=== PATIENT | female | born 1960 | race Hispanic/Latino ===

== ENCOUNTER 2018-04-13 01:00 | Emergency (ER) | payer OTHER ==
[2018-04-13] MEDS ORDERED: KETOROLAC TROMETHAMINE 60 MG/2 ML VIAL ONE (01:08)
[2018-04-13 01:59] LABS: APPEARANCE,URINE Cloudy (CLEAR); BILIRUBIN,URINE Negative (NEGATIVE); COLOR,URINE Yellow (YELLOW); GLUCOSE, URINE (UA) >=1000 mg/dL (NEGATIVE); KETONES,URINE Negative (NEGATIVE); LEUKOCYTE ESTERASE ,URINE Moderate (NEGATIVE); NITRATE,URINE Positive (NEGATIVE); OCCULT BLOOD,URINE Large (NEGATIVE); PH,URINE 5.5 (5.0-8.0); PROTEIN,URINE POS 2+ (NEGATIVE)
[2018-04-13 02:05] LABS: BACTERIA,URINE Many /HPF (None Seen); MUCUS,URINE Few LPF (None Seen); SQUAMOUS EPITHELIAL CELL,UR Few /HPF (0-2); WBC,URINE 26-50 /HPF (0-1)
[2018-04-13 02:06] LABS: AMPHET/METH SCREEN,URINE NEGATIVE (NEGATIVE); BARBITURATE SCREEN, URINE NEGATIVE (NEGATIVE); BENZODIAZEPINES SCREEN,URINE NEGATIVE (NEGATIVE); CANNABINOID SCREEN,URINE NEGATIVE (NEGATIVE); COCAINE SCREEN,URINE POSITIVE (NEGATIVE); OPIATE SCREEN,URINE NEGATIVE (NEGATIVE); PHENCYCLIDINE SCREEN,URINE NEGATIVE (NEGATIVE)
[2018-04-13] MEDS ORDERED: LIDOCAINE HCL MPF 1% 5ML VIAL ONE (02:31)
[2018-04-13] MEDS ORDERED: CEFTRIAXONE SODIUM 1 GM ONE (02:31)
== END 2018-04-13 02:42 | disposition home or self-care (01) ==
LOC: EDH 01:00
DX: N12 Tubulo-interstitial nephritis, not specified as acute or chronic (principal); F14.10 Cocaine abuse, uncomplicated; E11.9 Type 2 diabetes mellitus without complications; Z87.442 Personal history of urinary calculi; Z88.1 Allergy status to other antibiotic agents; Z72.0 Tobacco use
CPT/HCPCS: 80305; 81001; 96372 ×2; 99284; J0696; J1885; J3490

== ENCOUNTER 2021-01-20 19:50 | Emergency (ER) | payer OTHER ==
[~2021-01-20] VITALS: Ht 157.5 cm; Wt 77.1 kg
[2021-01-20] MEDS ORDERED: NACL 0.9% 1000ML 1,000 ML IV ONE (20:00)
[2021-01-20 20:13] LABS: BASOPHILS % (AUTO) 0.5 % (0.0-5.0); HEMATOCRIT 34.8 % (36-48); MEAN CORPUSCULAR HEMOGLOBIN 28.7 pg (27.0-33.0); MEAN CORPUSCULAR HGB CONC 33.6 g/dL (32.0-36.0); MEAN CORPUSCULAR VOLUME 85.5 fL (79-99); MONOCYTES % (AUTO) 4.4 % (3.0-13.0); NEUTROPHILS % (AUTO) 78.9 % (40.0-77.0); PLATELET COUNT (AUTO) 264 K/uL (130-400); RED BLOOD CELL COUNT(AUTO) 4.07 MIL/uL (4.00-5.50); RED CELL DISTRIBUTION WIDTH 13.5 % (11.0-15.5); WHITE BLOOD COUNT (AUTO) 4.1 K/uL (4.8-10.8)
[2021-01-20] MEDS ORDERED: ACETAMINOPHEN 500 MG TABLET PO ONE (20:15)
[2021-01-20 20:24] LABS: POTASSIUM 3.1 mmol/L (3.5-5.1)
[2021-01-20 20:28] LABS: ALBUMIN 3.1 g/dL (3.5-5.0); BILIRUBIN,TOTAL 0.4 mg/dL (0.2-1.0); TOTAL PROTEIN, SERUM 7.4 g/dL (6.0-8.3)
[2021-01-20] MEDS ORDERED: ACETAMINOPHEN 500 MG TABLET ONE (21:28)
[2021-01-20] MEDS ORDERED: OSELTAMIVIR PHOSPHATE 75 MG CAP PO SCH (21:45)
[2021-01-20 21:51] LABS: APPEARANCE,URINE Clear (CLEAR); BILIRUBIN,URINE Negative (NEGATIVE); COLOR,URINE Dark Yellow (YELLOW); GLUCOSE, URINE (UA) 250 mg/dL (NEGATIVE); KETONES,URINE 15 mg/dL (NEGATIVE); LEUKOCYTE ESTERASE ,URINE Negative (NEGATIVE); NITRATE,URINE Negative (NEGATIVE); OCCULT BLOOD,URINE Trace (NEGATIVE); PH,URINE 6.5 (5.0-8.0); PROTEIN,URINE POS 2+ mg/dL (NEGATIVE)
[2021-01-20 21:56] LABS: BACTERIA,URINE Rare /HPF (None Seen); RBC,URINE None Seen /HPF (0-1); SQUAMOUS EPITHELIAL CELL,UR Rare /HPF (0-2); WBC,URINE None Seen /HPF (0-1)
[2021-01-20] MEDS ORDERED: OSEL75 PO (22:20)
[2021-01-20] MEDS ORDERED: ACET-2247 PO (22:20)
[2021-01-20 23:00] VITALS: BP 95/54
== END 2021-01-20 23:51 | disposition home or self-care (01) ==
LOC: EDH 19:50
DX: J10.1 Influenza due to other identified influenza virus with other respiratory manifestations (principal); E86.0 Dehydration; I95.1 Orthostatic hypotension; E11.9 Type 2 diabetes mellitus without complications; Z59.0 Homelessness; Z88.1 Allergy status to other antibiotic agents; Z98.51 Tubal ligation status
CPT/HCPCS: 36415; 71045; 80053; 81001; 83690; 84484; 85025; 87804 ×2; 87880; 93005; 96360; 99285; J7030

== ENCOUNTER 2021-08-07 20:54 | Inpatient (IN) | payer OTHER ==
[~2021-08-07] VITALS: Ht 157.5 cm; Wt 74.3 kg
[~2021-08-07 20:54] MED LIST: METF-444 PO; OSEL75 PO
[2021-08-07 21:18] LABS: BASOPHILS % (AUTO) 0.1 % (0.0-5.0); EOSINOPHILS % (AUTO) 0.2 % (0.0-8.0); HEMATOCRIT 41.4 % (36-48); LYMPHOCYTES % (AUTO) 3.9 % (21.0-51.0); MEAN CORPUSCULAR HEMOGLOBIN 28.8 pg (27.0-33.0); MEAN CORPUSCULAR HGB CONC 32.6 g/dL (32.0-36.0); MEAN CORPUSCULAR VOLUME 88.5 fL (79-99); MONOCYTES % (AUTO) 3.6 % (3.0-13.0); NEUTROPHILS % (AUTO) 91.7 % (40.0-77.0); PLATELET COUNT (AUTO) 344 K/uL (130-400); RED BLOOD CELL COUNT(AUTO) 4.68 MIL/uL (4.00-5.50); RED CELL DISTRIBUTION WIDTH 13.3 % (11.0-15.5); WHITE BLOOD COUNT (AUTO) 17.3 K/uL (4.8-10.8)
[2021-08-07 21:26] LABS: CREATININE 1.2 mg/dL (0.5-1.5); POTASSIUM 3.9 mmol/L (3.5-5.1)
[2021-08-07 21:30] LABS: ALBUMIN 3.8 g/dL (3.5-5.0); BILIRUBIN,TOTAL 0.4 mg/dL (0.2-1.0)
[2021-08-07] MEDS ORDERED: CEFTRIAXONE 1G VIAL IVP ONE (21:30)
[2021-08-07] MEDS ORDERED: MORPHINE 4 MG SYG IV ONE (21:30)
[2021-08-07] MEDS ORDERED: ONDANSETRON 4MG INJ IVP ONE (21:30)
[2021-08-07] MEDS ORDERED: 0.9% NACL 500ML IV.SOLN 500 ML IV ONE (21:30)
[2021-08-07] MEDS ORDERED: KETOROLAC 30MG VIAL (30MG/ML) IM ONE (21:30)
[2021-08-07 21:54] LABS: APPEARANCE,URINE Cloudy (CLEAR); BILIRUBIN,URINE Negative (NEGATIVE); COLOR,URINE Yellow (YELLOW); GLUCOSE, URINE (UA) 500 mg/dL (NEGATIVE); KETONES,URINE Trace mg/dL (NEGATIVE); LEUKOCYTE ESTERASE ,URINE Moderate (NEGATIVE); NITRATE,URINE Positive (NEGATIVE); OCCULT BLOOD,URINE Small (NEGATIVE); PH,URINE 5.5 (5.0-8.0); PROTEIN,URINE POS 2+ mg/dL (NEGATIVE)
[2021-08-07 22:44] LABS: BACTERIA,URINE Few /HPF (None Seen); CALCIUM OXALATE CRYSTALS,UR Many /LPF (None Seen)
[2021-08-07] MEDS ORDERED: CEFTRIAXONE 1G VIAL IV SCH (23:00)
[2021-08-07] MEDS ORDERED: ACETAMINOPHEN 325 MG TAB PO PRN (23:00)
[2021-08-07] MEDS: LACTATED RINGERS 1000ML 1,000 ML IV SCH (23:41)
[2021-08-08] MEDS ORDERED: MEROPENEM 500 MG VIAL IVP SCH (01:30)
[2021-08-08] MEDS: KETOROLAC 30MG VIAL (30MG/ML) IM PRN ×3 (03:26→23:30)
[2021-08-08] MEDS: MEROPENEM 500 MG VIAL IVP SCH ×3 (04:58→21:01)
[2021-08-08 05:43] LABS: BASOPHILS % (AUTO) 0.2 % (0.0-5.0); EOSINOPHILS % (AUTO) 0.3 % (0.0-8.0); HEMATOCRIT 41.6 % (36-48); LYMPHOCYTES % (AUTO) 3.8 % (21.0-51.0); MEAN CORPUSCULAR HEMOGLOBIN 28.8 pg (27.0-33.0); MEAN CORPUSCULAR HGB CONC 32.7 g/dL (32.0-36.0); MEAN CORPUSCULAR VOLUME 87.9 fL (79-99); NEUTROPHILS % (AUTO) 93.8 % (40.0-77.0); PLATELET COUNT (AUTO) 318 K/uL (130-400); RED BLOOD CELL COUNT(AUTO) 4.73 MIL/uL (4.00-5.50); RED CELL DISTRIBUTION WIDTH 13.3 % (11.0-15.5); WHITE BLOOD COUNT (AUTO) 17.2 K/uL (4.8-10.8)
[2021-08-08 05:52] LABS: HEMOGLOBIN A1C 8.2 % (4.0-6.0)
[2021-08-08 05:55] LABS: CREATININE 1.8 mg/dL (0.5-1.5); MAGNESIUM 1.3 mg/dL (1.80-2.40); PHOSPHORUS 2.9 mg/dL (2.5-4.9); POTASSIUM 4.5 mmol/L (3.5-5.1)
[2021-08-08] MEDS: INSULIN HUMULIN R 100 UNIT/ML 3ML SQ SCH ×4 (06:44→21:29)
[2021-08-08] MEDS: FAMOTIDINE 20MG TAB PO SCH ×2 (09:36→21:01)
[2021-08-08] MEDS: HEPARIN 5,000 UNIT VIAL SQ SCH ×2 (09:37→14:47)
[2021-08-08] MEDS: LACTATED RINGERS 1000ML 1,000 ML IV SCH ×2 (12:42→21:01)
[2021-08-08 16:00] VITALS: BP 122/71
[2021-08-08] MEDS: MAGNESIUM 2GM PREMIX 50ML 50 ML IV PRN (18:54)
[2021-08-08 18:58] LABS: INR 1.15 (0.85-1.15); PROTHROMBIN TIME 12.4 SEC (9.6-11.6)
[2021-08-08 19:00] LABS: PARTIAL THROMBOPLASTIN TIME 38.2 SEC (26.3-35.5)
[2021-08-08 20:00] VITALS: BP 105/52
[2021-08-08] MEDS: GUAIFENESIN-DM 200/20 MG 10 ML PO PRN (23:29)
[2021-08-09] VITALS: BP 128/58
[2021-08-09 04:00] VITALS: BP 117/69
[2021-08-09] MEDS: MEROPENEM 500 MG VIAL IVP SCH (05:00)
[2021-08-09] MEDS: INSULIN HUMULIN R 100 UNIT/ML 3ML SQ SCH ×4 (06:24→21:47)
[2021-08-09] MEDS: KETOROLAC 30MG VIAL (30MG/ML) IM PRN ×3 (06:26→23:42)
[2021-08-09] MEDS: FAMOTIDINE 20MG TAB PO SCH ×2 (07:54→20:30)
[2021-08-09 08:00] VITALS: BP 118/52
[2021-08-09 12:00] VITALS: BP 100/45
[2021-08-09] MEDS: MEROPENEM 1 GM VIAL IVP SCH ×2 (14:00→20:30)
[2021-08-09] MEDS ORDERED: PROPOFOL 10 MG/ML 20ML VIAL IV ONE (15:56)
[2021-08-09] MEDS ORDERED: GLYCOPYRROLATE 1 MG/5 ML SYRINGE ONE (15:56)
[2021-08-09] MEDS ORDERED: ROCURONIUM 10MG/1ML SYR 10 MG/ML ML ONE (15:56)
[2021-08-09] MEDS ORDERED: LIDOCAINE PF 100MG/5ML (2%) SYRINGE 5ML ONE (15:56)
[2021-08-09] MEDS ORDERED: NEOSTIGMINE 5MG/5ML SYR IV ONE (15:56)
[2021-08-09] MEDS ORDERED: FENTANYL CITRATE PF 50 MCG/1 ML 2ML VIAL ONE (15:56)
[2021-08-09] MEDS ORDERED: MIDAZOLAM HCL 1 MG/ML 2ML VIAL ONE (15:56)
[2021-08-09] MEDS ORDERED: SUCCINYLCHOLINE CHLORIDE 20 MG/ML 10 ML VIAL ONE (15:56)
[2021-08-09] MEDS ORDERED: KETAMINE 50MG/ML SYRINGE 50 MG/ML DISP.SYRIN IV ONE (15:57)
[2021-08-09 16:00] VITALS: BP 128/59
[2021-08-09 20:00] VITALS: BP 105/66
[2021-08-09] MEDS: LACTATED RINGERS 1000ML 1,000 ML IV SCH (20:31)
[2021-08-09] MEDS: GUAIFENESIN-DM 200/20 MG 10 ML PO PRN (23:42)
[2021-08-10] VITALS: BP 102/55
[2021-08-10 04:00] VITALS: BP 115/60
[2021-08-10 04:15] LABS: BASOPHILS % (AUTO) 0.1 % (0.0-5.0); EOSINOPHILS % (AUTO) 1.9 % (0.0-8.0); HEMATOCRIT 31.3 % (36-48); LYMPHOCYTES % (AUTO) 10.6 % (21.0-51.0); MEAN CORPUSCULAR HEMOGLOBIN 28.8 pg (27.0-33.0); MEAN CORPUSCULAR HGB CONC 32.6 g/dL (32.0-36.0); MEAN CORPUSCULAR VOLUME 88.4 fL (79-99); MONOCYTES % (AUTO) 4.2 % (3.0-13.0); NEUTROPHILS % (AUTO) 81.9 % (40.0-77.0); PLATELET COUNT (AUTO) 226 K/uL (130-400); RED BLOOD CELL COUNT(AUTO) 3.54 MIL/uL (4.00-5.50); RED CELL DISTRIBUTION WIDTH 13.1 % (11.0-15.5); WHITE BLOOD COUNT (AUTO) 13.5 K/uL (4.8-10.8)
[2021-08-10 04:30] LABS: CREATININE 1.3 mg/dL (0.5-1.5); POTASSIUM 3.8 mmol/L (3.5-5.1)
[2021-08-10 05:19] LABS: CRP QUANTITATIVE 233.7 mg/L (0.00-9.0)
[2021-08-10 05:41] LABS: ERYTHROCYTE SEDIMENTATION RATE 99 MM/HR (0-30)
[2021-08-10] MEDS: INSULIN HUMULIN R 100 UNIT/ML 3ML SQ SCH ×4 (05:50→20:55)
[2021-08-10] MEDS: LACTATED RINGERS 1000ML 1,000 ML IV SCH ×3 (05:51→21:58)
[2021-08-10] MEDS: MEROPENEM 1 GM VIAL IVP SCH ×3 (05:55→20:54)
[2021-08-10 08:00] VITALS: BP 111/69
[2021-08-10] MEDS: KETOROLAC 30MG VIAL (30MG/ML) IM PRN ×2 (08:37→18:26)
[2021-08-10] MEDS: FAMOTIDINE 20MG TAB PO SCH ×2 (09:03→20:52)
[2021-08-10 11:49] VITALS: BP 112/67
[2021-08-10] MEDS ORDERED: LIDOCAINE HCL 1% MDV 50ML VIAL ONE (14:08)
[2021-08-10] MEDS ORDERED: IODIXANOL 320 MG/ML 100 ML VIAL ONE (14:11)
[2021-08-10] MEDS ORDERED: MIDAZOLAM HCL 1 MG/ML 2ML VIAL ONE (14:42)
[2021-08-10] MEDS ORDERED: FENTANYL CITRATE PF 50 MCG/1 ML 2ML VIAL ONE (14:42)
[2021-08-10 16:00] VITALS: BP 133/88
[2021-08-10] MEDS: GUAIFENESIN-DM 200/20 MG 10 ML PO PRN (19:30)
[2021-08-10 20:09] VITALS: BP 131/63
[2021-08-11] VITALS (7 sets, daily range): BP systolic 107–130; BP diastolic 60–75
[2021-08-11] MEDS: KETOROLAC 30MG VIAL (30MG/ML) IM PRN ×2 (02:32→09:07)
[2021-08-11] MEDS: MEROPENEM 1 GM VIAL IVP SCH ×3 (05:20→21:02)
[2021-08-11] MEDS: GUAIFENESIN-DM 200/20 MG 10 ML PO PRN ×2 (05:51→14:56)
[2021-08-11] MEDS: INSULIN HUMULIN R 100 UNIT/ML 3ML SQ SCH ×4 (05:52→20:57)
[2021-08-11] MEDS: FAMOTIDINE 20MG TAB PO SCH ×2 (09:08→20:47)
[2021-08-12] MEDS: KETOROLAC 30MG VIAL (30MG/ML) IM PRN (01:34)
[2021-08-12 04:04] VITALS: BP 113/62
[2021-08-12] MEDS: MEROPENEM 1 GM VIAL IVP SCH ×3 (06:08→23:02)
[2021-08-12] MEDS: INSULIN HUMULIN R 100 UNIT/ML 3ML SQ SCH ×4 (07:30→20:08)
[2021-08-12 07:56] VITALS: BP 142/70
[2021-08-12] MEDS: FAMOTIDINE 20MG TAB PO SCH ×2 (09:38→19:58)
[2021-08-12] MEDS: LACTATED RINGERS 1000ML 1,000 ML IV SCH ×2 (09:40→23:00)
[2021-08-12] MEDS ORDERED: KETOROLAC 30MG VIAL (30MG/ML) IVP PRN (10:00)
[2021-08-12 10:58] VITALS: BP 122/74
[2021-08-12] MEDS: GUAIFENESIN-DM 200/20 MG 10 ML PO PRN ×2 (14:30→23:02)
[2021-08-12 16:28] VITALS: BP 120/76
[2021-08-12 19:55] VITALS: BP 143/78
[2021-08-12 23:19] VITALS: BP 126/69
[2021-08-13 04:05] VITALS: BP 152/62
[2021-08-13 04:19] LABS: BASOPHILS % (AUTO) 0.7 % (0.0-5.0); EOSINOPHILS % (AUTO) 3.8 % (0.0-8.0); HEMATOCRIT 31.6 % (36-48); LYMPHOCYTES % (AUTO) 31.9 % (21.0-51.0); MEAN CORPUSCULAR HGB CONC 32.9 g/dL (32.0-36.0); MONOCYTES % (AUTO) 9.4 % (3.0-13.0); NEUTROPHILS % (AUTO) 50.7 % (40.0-77.0); PLATELET COUNT (AUTO) 307 K/uL (130-400); RED BLOOD CELL COUNT(AUTO) 3.59 MIL/uL (4.00-5.50); RED CELL DISTRIBUTION WIDTH 12.8 % (11.0-15.5); WHITE BLOOD COUNT (AUTO) 7.7 K/uL (4.8-10.8)
[2021-08-13 04:33] LABS: CREATININE 1.1 mg/dL (0.5-1.5); POTASSIUM 3.9 mmol/L (3.5-5.1)
[2021-08-13] MEDS ORDERED: KETOROLAC 30MG VIAL (30MG/ML) ONE (05:31)
[2021-08-13] MEDS: MEROPENEM 1 GM VIAL IVP SCH ×3 (05:39→21:37)
[2021-08-13] MEDS ORDERED: KETOROLAC 30MG VIAL (30MG/ML) IV ONE (06:00)
[2021-08-13] MEDS: INSULIN HUMULIN R 100 UNIT/ML 3ML SQ SCH ×4 (06:36→21:00)
[2021-08-13 08:05] VITALS: BP 145/72
[2021-08-13] MEDS: FAMOTIDINE 20MG TAB PO SCH ×2 (08:46→21:37)
[2021-08-13 11:44] VITALS: BP 117/66
[2021-08-13] MEDS: LACTATED RINGERS 1000ML 1,000 ML IV SCH (12:20)
[2021-08-13] MEDS ORDERED: IBUPROFEN 600 MG TABLET PO PRN (13:30)
[2021-08-13] MEDS: MAGNESIUM 2GM PREMIX 50ML 50 ML IV PRN (16:50)
[2021-08-13 17:01] VITALS: BP 123/63
[2021-08-13 20:00] VITALS: BP 138/85
[2021-08-14] VITALS: BP 120/63
[2021-08-14] MEDS: GUAIFENESIN-DM 200/20 MG 10 ML PO PRN ×3 (01:30→22:58)
[2021-08-14] MEDS: LACTATED RINGERS 1000ML 1,000 ML IV SCH (01:40)
[2021-08-14 04:00] VITALS: BP 144/80
[2021-08-14] MEDS: MEROPENEM 1 GM VIAL IVP SCH ×3 (05:38→21:20)
[2021-08-14] MEDS: ACETAMINOPHEN 325 MG TAB PO PRN ×2 (05:39→16:26)
[2021-08-14] MEDS: INSULIN HUMULIN R 100 UNIT/ML 3ML SQ SCH ×4 (05:50→21:17)
[2021-08-14 07:51] VITALS: BP 131/61
[2021-08-14] MEDS: FAMOTIDINE 20MG TAB PO SCH ×2 (09:57→21:20)
[2021-08-14 10:51] VITALS: BP 98/53
[2021-08-14 16:03] VITALS: BP 138/72
[2021-08-14 19:30] VITALS: BP 120/68
[2021-08-15] VITALS (7 sets, daily range): BP systolic 99–120; BP diastolic 57–76
[2021-08-15] MEDS: ACETAMINOPHEN 325 MG TAB PO PRN (02:51)
[2021-08-15] MEDS: MEROPENEM 1 GM VIAL IVP SCH ×3 (04:58→21:46)
[2021-08-15] MEDS: INSULIN HUMULIN R 100 UNIT/ML 3ML SQ SCH ×2 (06:33→21:46)
[2021-08-15] MEDS: FAMOTIDINE 20MG TAB PO SCH ×2 (08:58→21:39)
[2021-08-15] MEDS: GUAIFENESIN-DM 200/20 MG 10 ML PO PRN (18:21)
[2021-08-16 03:11] VITALS: BP 95/54
[2021-08-16] MEDS: GUAIFENESIN-DM 200/20 MG 10 ML PO PRN ×2 (03:53→19:09)
[2021-08-16] MEDS: MEROPENEM 1 GM VIAL IVP SCH ×3 (05:13→21:03)
[2021-08-16] MEDS: INSULIN HUMULIN R 100 UNIT/ML 3ML SQ SCH ×4 (07:30→21:00)
[2021-08-16] MEDS: FAMOTIDINE 20MG TAB PO SCH ×2 (07:57→21:03)
[2021-08-16 08:06] LABS: BASOPHILS % (AUTO) 0.6 % (0.0-5.0); EOSINOPHILS % (AUTO) 3.3 % (0.0-8.0); HEMATOCRIT 39.7 % (36-48); LYMPHOCYTES % (AUTO) 33.3 % (21.0-51.0); MEAN CORPUSCULAR HGB CONC 32.5 g/dL (32.0-36.0); MEAN CORPUSCULAR VOLUME 86.3 fL (79-99); MONOCYTES % (AUTO) 5.7 % (3.0-13.0); NEUTROPHILS % (AUTO) 55.3 % (40.0-77.0); PLATELET COUNT (AUTO) 565 K/uL (130-400); RED CELL DISTRIBUTION WIDTH 13.2 % (11.0-15.5); WHITE BLOOD COUNT (AUTO) 10.4 K/uL (4.8-10.8)
[2021-08-16 08:31] LABS: % IRON SATURATION 15.9 % (22-44)
[2021-08-16 08:33] VITALS: BP 129/73
[2021-08-16 08:55] LABS: CREATININE 1.1 mg/dL (0.5-1.5); CRP QUANTITATIVE 14.4 mg/L (0.00-9.0); POTASSIUM 4.3 mmol/L (3.5-5.1)
[2021-08-16 11:47] VITALS: BP 115/67
[2021-08-16 16:10] VITALS: BP 106/72
[2021-08-16 20:00] VITALS: BP 108/80
[2021-08-16 22:59] VITALS: BP 87/51
[2021-08-17] MEDS: ACETAMINOPHEN 325 MG TAB PO PRN (00:56)
[2021-08-17 03:57] VITALS: BP 103/63
[2021-08-17] MEDS: MEROPENEM 1 GM VIAL IVP SCH ×2 (05:51→13:34)
[2021-08-17 08:00] VITALS: BP 105/64
[2021-08-17] MEDS: FAMOTIDINE 20MG TAB PO SCH (09:21)
[2021-08-17] MEDS: INSULIN HUMULIN R 100 UNIT/ML 3ML SQ SCH ×2 (09:21→13:38)
== END 2021-08-17 15:39 | disposition home or self-care (01) | DRG 872 ==
LOC: EDH 20:54 → EDHIP 20:55 → UNDOADMIN 22:47 → 4CH 08-08 16:00 → 4DH 08-10 07:55
PROVIDERS: ADMIT Internal Medicine; ATTEND Internal Medicine
PROC: BT111ZZ Fluoroscopy of Right Kidney using Low Osmolar Contrast (ICD-10-PCS; principal; 2021-08-10)
DX: A41.51 Sepsis due to Escherichia coli [E. coli] (principal); N13.6 Pyonephrosis; Z16.24 Resistance to multiple antibiotics; E87.1 Hypo-osmolality and hyponatremia; Z16.12 Extended spectrum beta lactamase (ESBL) resistance; N17.9 Acute kidney failure, unspecified; E11.65 Type 2 diabetes mellitus with hyperglycemia; F31.9 Bipolar disorder, unspecified; F41.9 Anxiety disorder, unspecified; Z20.822 Contact with and (suspected) exposure to COVID-19; F17.210 Nicotine dependence, cigarettes, uncomplicated; Z59.00 Homelessness unspecified; Z87.442 Personal history of urinary calculi; Z88.1 Allergy status to other antibiotic agents; Z56.0 Unemployment, unspecified; Z63.8 Other specified problems related to primary support group; Z90.49 Acquired absence of other specified parts of digestive tract; Z93.6 Other artificial openings of urinary tract status; Z91.19 Patient's noncompliance with other medical treatment and regimen; Z83.3 Family history of diabetes mellitus; Z82.0 Family history of epilepsy and other diseases of the nervous system; Z80.9 Family history of malignant neoplasm, unspecified; Z82.49 Family history of ischemic heart disease and other diseases of the circulatory system
CPT/HCPCS: 10030; 36415; 50430; 71045; 74176; 80048; 80053; 81001; 82607; 82728; 82746; 82948; 83036; 83540; 83550; 83605; 83690; 83735; 84100; 84145; 84484; 85025; 85045; 85610; 85651; 85730; 86140; 87040; 87077; 87088; 87186; 87635; 93005; 99156; C1894; G0378; J0330; J0696; J1644; J1815; J1885; J2001; J2185; J2250; J2270; J2405; J2704; J2710; J3010; J3475; J3490; J7040; J7120; Q9967

== ENCOUNTER 2022-12-26 16:33 | Emergency (ER) | payer OTHER ==
[~2022-12-26] VITALS: Ht 157.5 cm; Wt 79.4 kg
[2022-12-26] MEDS ORDERED: ACETAMINOPHEN 325 MG TAB ONE (17:04)
[2022-12-26] MEDS ORDERED: ACETAMINOPHEN 325 MG TAB PO ONE (17:30)
[2022-12-26] MEDS ORDERED: CYCL5TAB PO (19:26)
[2022-12-26] MEDS ORDERED: IBUP-2070 PO (19:26)
[2022-12-26] MEDS ORDERED: KETOROLAC 60 MG VIAL (30MG/ML) IM ONE (19:30)
[2022-12-26 19:37] VITALS: BP 111/61
== END 2022-12-26 19:57 | disposition home or self-care (01) ==
LOC: EDH 16:33
DX: S70.02XA Contusion of left hip, initial encounter (principal); E11.9 Type 2 diabetes mellitus without complications; F17.200 Nicotine dependence, unspecified, uncomplicated; Z87.442 Personal history of urinary calculi; Z88.1 Allergy status to other antibiotic agents; Z98.890 Other specified postprocedural states; W01.0XXA Fall on same level from slipping, tripping and stumbling without subsequent striking against object, initial encounter; Y93.01 Activity, walking, marching and hiking; Y92.89 Other specified places as the place of occurrence of the external cause; Y99.8 Other external cause status
CPT/HCPCS: 99284; 96374; 73502; 73552; J1885

== ENCOUNTER 2023-07-28 06:22 | Emergency (ER) | payer MEDICAID, OTHER ==
[~2023-07-28] VITALS: Ht 157.5 cm; Wt 77.1 kg
[~2023-07-28 06:22] MED LIST changes: +CYCL5TAB PO; +IBUP-2070 PO; -METF-444 PO; -OSEL75 PO
[2023-07-28 08:57] LABS: BASOPHILS # (AUTO) 0.04 K/uL (0.00-0.20); BASOPHILS % (AUTO) 0.4 % (0.0-5.0); EOSINOPHILS # (AUTO) 0.39 K/uL (0.00-0.70); IMMATURE GRANULOCYTE ABSOLUTE 0.06 K/uL (0-1); LYMPHOCYTES # (AUTO) 2.7 K/uL (1.0-4.8); LYMPHOCYTES % (AUTO) 27.6 % (21.0-51.0); MEAN CORPUSCULAR HEMOGLOBIN 29.1 pg (27.0-33.0); MEAN CORPUSCULAR VOLUME 88.4 fL (79-99); MONOCYTES # (AUTO) 0.4 K/uL (0.1-1.0); MONOCYTES % (AUTO) 4.4 % (3.0-13.0); NEUTROPHILS # (AUTO) 6.2 K/uL (1.8-7.7); PLATELET COUNT (AUTO) 351 K/uL (130-400); RED BLOOD CELL COUNT(AUTO) 4.98 MIL/uL (4.00-5.50); RED CELL DISTRIBUTION WIDTH 13.2 % (11.0-15.5); WHITE BLOOD COUNT (AUTO) 9.9 K/uL (4.8-10.8)
[2023-07-28] MEDS ORDERED: KETOROLAC 30MG VIAL (30MG/ML) IM ONE (09:00)
[2023-07-28 09:07] LABS: CREATININE 0.9 mg/dL (0.5-1.5); POTASSIUM 3.8 mmol/L (3.5-5.1)
[2023-07-28 09:11] LABS: ALBUMIN 3.6 g/dL (3.5-5.0); BILIRUBIN,TOTAL 0.4 mg/dL (0.2-1.0); TOTAL PROTEIN, SERUM 7.9 g/dL (6.0-8.3)
[2023-07-28 10:24] VITALS: BP 112/74; PULSE 64; RESP 16; O2SAT 99
[2023-07-28 10:41] LABS: APPEARANCE,URINE CLOUDY (CLEAR); BILIRUBIN,URINE NEGATIVE (NEGATIVE); COLOR,URINE YELLOW (YELLOW); GLUCOSE, URINE (UA) >=1000 mg/dL (NEGATIVE); KETONES,URINE NEGATIVE (NEGATIVE); LEUKOCYTE ESTERASE ,URINE 500 Leu/uL (NEGATIVE); NITRATE,URINE NEGATIVE (NEGATIVE); OCCULT BLOOD,URINE NEGATIVE (NEGATIVE); PH,URINE 5.5 (5.0-8.0); PROTEIN,URINE 70 mg/dL (NEGATIVE); UROBILINOGEN,URINE 0.2 mg/dL (0.2-1.0)
[2023-07-28 10:43] LABS: ADD UA MICROSCOPIC YES
[2023-07-28 10:45] LABS: BACTERIA,URINE MANY /HPF (None Seen); MUCUS,URINE FEW LPF (None Seen); SQUAMOUS EPITHELIAL CELL,UR RARE /HPF (0-2); WBC,URINE 51-100 /HPF (0-1)
[2023-07-28] MEDS ORDERED: IBUP-2070 PO (11:14)
[2023-07-28] MEDS ORDERED: MACR100 PO (11:14)
[2023-07-28] MEDS ORDERED: NITROFURANTOIN MONOHYD/M-CRYST 100 MG CAPSULE PO ONE (11:30)
== END 2023-07-28 11:37 | disposition home or self-care (01) ==
LOC: EDH 06:22
DX: M54.16 Radiculopathy, lumbar region (principal); N39.0 Urinary tract infection, site not specified; E11.9 Type 2 diabetes mellitus without complications; F17.200 Nicotine dependence, unspecified, uncomplicated; Z88.1 Allergy status to other antibiotic agents
CPT/HCPCS: 99285; 72131; 80053; 85025; 87077; 87088; 87186; 86140; 81001; 36415; 96372; J1885

== ENCOUNTER 2024-03-22 03:59 | Observation (INO) | payer MEDICAID ==
[~2024-03-22] VITALS: Ht 158.8 cm; Wt 72.7 kg
[~2024-03-22 03:59] MED LIST changes: +MACR100 PO
[2024-03-22] MEDS: CYCLOBENZAPRINE HCL 10 MG TABLET PO ONE (04:53)
[2024-03-22] MEDS: Solu-medROL 125MG VIAL IM ONE (04:53)
[2024-03-22] MEDS: KETOROLAC 15MG/ML VIAL (15MG/ML) IM ONE (04:53)
[2024-03-22 08:28] LABS: BASOPHILS # (AUTO) 0.02 K/uL (0.00-0.20); BASOPHILS % (AUTO) 0.2 % (0.0-5.0); EOSINOPHILS # (AUTO) 0.03 K/uL (0.00-0.70); EOSINOPHILS % (AUTO) 0.3 % (0.0-8.0); HEMATOCRIT 37.2 % (36-48); IMMATURE GRANULOCYTE ABSOLUTE 0.04 K/uL (0-1); LYMPHOCYTES # (AUTO) 1.2 K/uL (1.0-4.8); LYMPHOCYTES % (AUTO) 12.8 % (21.0-51.0); MEAN CORPUSCULAR HEMOGLOBIN 29.2 pg (27.0-33.0); MEAN CORPUSCULAR HGB CONC 33.6 g/dL (32.0-36.0); MEAN CORPUSCULAR VOLUME 86.9 fL (79-99); MONOCYTES # (AUTO) 0.1 K/uL (0.1-1.0); MONOCYTES % (AUTO) 1.2 % (3.0-13.0); NEUTROPHILS # (AUTO) 7.9 K/uL (1.8-7.7); NEUTROPHILS % (AUTO) 85.1 % (40.0-77.0); PLATELET COUNT (AUTO) 370 K/uL (130-400); RED BLOOD CELL COUNT(AUTO) 4.28 MIL/uL (4.00-5.50); RED CELL DISTRIBUTION WIDTH 13.5 % (11.0-15.5); WHITE BLOOD COUNT (AUTO) 9.2 K/uL (4.8-10.8)
[2024-03-22] MEDS: MORPHINE 2 MG SYG IVP ONE ×2 (08:39→10:18)
[2024-03-22 08:46] LABS: ALBUMIN 3.2 g/dL (3.5-5.0); BILIRUBIN,DIRECT 0.1 mg/dL (0.0-0.3); BILIRUBIN,TOTAL 0.4 mg/dL (0.2-1.0); CREATININE 1.1 mg/dL (0.5-1.0); POTASSIUM 3.9 mmol/L (3.5-5.1); TOTAL PROTEIN, SERUM 7.4 g/dL (6.0-8.3)
[2024-03-22] MEDS ORDERED: CEPH500B PO (09:28)
[2024-03-22] MEDS: cefTRIAXone 1G VIAL IVPB ONE (09:38)
[2024-03-22] MEDS ORDERED: ONDANSETRON 4MG INJ IV PRN (14:30)
[2024-03-22] MEDS ORDERED: POTASSIUM CHLORIDE 10% ELIXIR 20 MEQ/15 ML UDCUP PO PRN (14:30)
[2024-03-22] MEDS ORDERED: guaiFENesin-coDEINE-DM 200/20 MG 10 ML PO PRN (14:30)
[2024-03-22] MEDS ORDERED: POTASSIUM CHLORIDE 10MEQ/100ML 100 ML IV PRN (14:30)
[2024-03-22] MEDS ORDERED: hydrALAZine 20MG/ML VIAL IV PRN (14:30)
[2024-03-22] MEDS ORDERED: FAMOTIDINE 20MG VIAL IV PRN (14:30)
[2024-03-22] MEDS ORDERED: acetaMINOPHEN 325 MG TAB PO PRN (14:30)
[2024-03-22] MEDS ORDERED: MAG/ALUM/SIMETH 30 ML UDCUP PO PRN (14:30)
[2024-03-22] MEDS ORDERED: NITROGLYCERIN 0.4 MG SL TAB SL PRN (14:30)
[2024-03-22] MEDS ORDERED: DiphenhydrAMINE HCL 50 MG/ML VIAL IV PRN (14:30)
[2024-03-22] MEDS: KETOROLAC 15MG/ML VIAL (15MG/ML) IM PRN (14:38)
[2024-03-22] MEDS: INSULIN humuLIN R 100 UNIT/ML 3ML SQ SCH (18:04)
[2024-03-22] MEDS: HEParin 5,000 UNIT VIAL SQ SCH (21:25)
[2024-03-22] MEDS: HYDROcodone/APAP 5/325 1 TAB TABLET PO PRN (21:25)
[2024-03-22] MEDS: FAMOTIDINE 20MG VIAL IV SCH (21:26)
[2024-03-22 22:30] VITALS: BP 117/59; PULSE 79; RESP 18
[2024-03-22] MEDS: ZOLPidem TARTrate 5 MG TAB PO PRN (22:55)
[2024-03-23] VITALS (7 sets, daily range): BP systolic 121–141; BP diastolic 55–71; PULSE 80–82; RESP 16–18; O2SAT 95–96
[2024-03-23 05:59] LABS: BASOPHILS # (AUTO) 0.04 K/uL (0.00-0.20); BASOPHILS % (AUTO) 0.4 % (0.0-5.0); EOSINOPHILS # (AUTO) 0.33 K/uL (0.00-0.70); EOSINOPHILS % (AUTO) 3.5 % (0.0-8.0); HEMATOCRIT 33.4 % (36-48); IMMATURE GRANULOCYTE ABSOLUTE 0.06 K/uL (0-1); LYMPHOCYTES # (AUTO) 1.9 K/uL (1.0-4.8); LYMPHOCYTES % (AUTO) 20.2 % (21.0-51.0); MEAN CORPUSCULAR HEMOGLOBIN 29.4 pg (27.0-33.0); MEAN CORPUSCULAR HGB CONC 33.8 g/dL (32.0-36.0); MEAN CORPUSCULAR VOLUME 86.8 fL (79-99); MONOCYTES # (AUTO) 0.6 K/uL (0.1-1.0); MONOCYTES % (AUTO) 5.8 % (3.0-13.0); NEUTROPHILS # (AUTO) 6.5 K/uL (1.8-7.7); NEUTROPHILS % (AUTO) 69.5 % (40.0-77.0); PLATELET COUNT (AUTO) 350 K/uL (130-400); RED BLOOD CELL COUNT(AUTO) 3.85 MIL/uL (4.00-5.50); RED CELL DISTRIBUTION WIDTH 13.5 % (11.0-15.5); WHITE BLOOD COUNT (AUTO) 9.4 K/uL (4.8-10.8)
[2024-03-23 06:16] LABS: HEMOGLOBIN A1C 8.7 % (4.0-6.0)
[2024-03-23 06:30] LABS: ALANINE AMINOTRANSFERASE 89 U/L (12-78); AMMONIA < 10 umol/L (11-32); ASPARTATE AMINOTRANSFERASE 26 U/L (10-37); BILIRUBIN,DIRECT 0.1 mg/dL (0.0-0.3); BILIRUBIN,TOTAL 0.3 mg/dL (0.2-1.0); CARBON DIOXIDE 24 mmol/L (21-32); CHLORIDE 105 mmol/L (101-111); CREATINE KINASE, TOTAL 41 U/L (21-232); CREATININE 1.1 mg/dL (0.5-1.0); GLOMERULAR FILTR. RATE CALC 56 mL/min (>90); GLUCOSE,RANDOM 126 mg/dL (70-105); POTASSIUM 3.4 mmol/L (3.5-5.1); SODIUM SERUM 140 mmol/L (136-145); TOTAL PROTEIN, SERUM 6.8 g/dL (6.0-8.3); UREA NITROGEN, BLOOD 27 mg/dL (7-18)
[2024-03-23] MEDS: MAGNESIUM 2GM PREMIX 50ML 50 ML IV PRN (06:47)
[2024-03-23] MEDS: POTASSIUM CHLORIDE 10MEQ SR TAB PO PRN (08:25)
[2024-03-23] MEDS: LACTULOSE 20 GM/30 ML UDCUP PO PRN (23:49)
[2024-03-24] VITALS (7 sets, daily range): BP systolic 118–147; BP diastolic 58–90; PULSE 74–80; RESP 16–18; O2SAT 96–98
[2024-03-24 05:07] LABS: BASOPHILS # (AUTO) 0.04 K/uL (0.00-0.20); BASOPHILS % (AUTO) 0.6 % (0.0-5.0); EOSINOPHILS # (AUTO) 0.29 K/uL (0.00-0.70); EOSINOPHILS % (AUTO) 4.3 % (0.0-8.0); HEMATOCRIT 33.4 % (36-48); IMMATURE GRANULOCYTE ABSOLUTE 0.03 K/uL (0-1); LYMPHOCYTES % (AUTO) 30.5 % (21.0-51.0); MEAN CORPUSCULAR HEMOGLOBIN 28.6 pg (27.0-33.0); MEAN CORPUSCULAR HGB CONC 32.6 g/dL (32.0-36.0); MEAN CORPUSCULAR VOLUME 87.7 fL (79-99); MONOCYTES # (AUTO) 0.5 K/uL (0.1-1.0); MONOCYTES % (AUTO) 6.7 % (3.0-13.0); NEUTROPHILS # (AUTO) 3.8 K/uL (1.8-7.7); NEUTROPHILS % (AUTO) 57.5 % (40.0-77.0); PLATELET COUNT (AUTO) 357 K/uL (130-400); RED BLOOD CELL COUNT(AUTO) 3.81 MIL/uL (4.00-5.50); RED CELL DISTRIBUTION WIDTH 13.5 % (11.0-15.5); WHITE BLOOD COUNT (AUTO) 6.7 K/uL (4.8-10.8)
[2024-03-24 05:14] LABS: BILIRUBIN,DIRECT 0.2 mg/dL (0.0-0.3); BILIRUBIN,TOTAL 0.4 mg/dL (0.2-1.0); POTASSIUM 3.3 mmol/L (3.5-5.1); TOTAL PROTEIN, SERUM 6.9 g/dL (6.0-8.3)
[2024-03-24 12:21] LABS: APPEARANCE,URINE TURBID (CLEAR); BILIRUBIN,URINE NEGATIVE (NEGATIVE); COLOR,URINE YELLOW (YELLOW); GLUCOSE, URINE (UA) NEGATIVE (NEGATIVE); KETONES,URINE 20 mg/dL (NEGATIVE); LEUKOCYTE ESTERASE ,URINE 500 Leu/uL (NEGATIVE); NITRATE,URINE 2+ (NEGATIVE); OCCULT BLOOD,URINE LARGE (NEGATIVE); PROTEIN,URINE 50 mg/dL (NEGATIVE); UROBILINOGEN,URINE 3 mg/dL (0.2-1.0)
[2024-03-24 12:35] LABS: BACTERIA,URINE MANY /HPF (None Seen); MUCUS,URINE MANY LPF (None Seen); NON-SQUAMOUS EPITHELIAL CELL 2 /HPF (0-2); RBC,URINE TNTC /HPF (0-1); SQUAMOUS EPITHELIAL CELL,UR MOD /HPF (0-2); UNCLASSIFIED CRYSTAL 5 /HPF (None Seen); WBC CLUMP MOD /HPF (0-1); WBC,URINE TNTC /HPF (0-1); YEAST,URINE BUDDING FEW /HPF (None Seen)
[2024-03-24] MEDS: cefTRIAXone 1G VIAL IVPB SCH (15:43)
[2024-03-25] VITALS (9 sets, daily range): BP systolic 102–137; BP diastolic 50–67; PULSE 68–110; RESP 17–20; O2SAT 96–98
[2024-03-25 04:02] LABS: BASOPHILS # (AUTO) 0.02 K/uL (0.00-0.20); BASOPHILS % (AUTO) 0.3 % (0.0-5.0); EOSINOPHILS # (AUTO) 0.31 K/uL (0.00-0.70); EOSINOPHILS % (AUTO) 4.9 % (0.0-8.0); HEMATOCRIT 31.8 % (36-48); IMMATURE GRANULOCYTE ABSOLUTE 0.02 K/uL (0-1); LYMPHOCYTES # (AUTO) 1.8 K/uL (1.0-4.8); MEAN CORPUSCULAR HEMOGLOBIN 28.9 pg (27.0-33.0); MEAN CORPUSCULAR HGB CONC 33.3 g/dL (32.0-36.0); MEAN CORPUSCULAR VOLUME 86.6 fL (79-99); MONOCYTES # (AUTO) 0.4 K/uL (0.1-1.0); NEUTROPHILS # (AUTO) 3.8 K/uL (1.8-7.7); NEUTROPHILS % (AUTO) 60.5 % (40.0-77.0); PLATELET COUNT (AUTO) 336 K/uL (130-400); RED BLOOD CELL COUNT(AUTO) 3.67 MIL/uL (4.00-5.50); RED CELL DISTRIBUTION WIDTH 13.4 % (11.0-15.5); WHITE BLOOD COUNT (AUTO) 6.4 K/uL (4.8-10.8)
[2024-03-25 04:17] LABS: ALBUMIN 2.9 g/dL (3.5-5.0); BILIRUBIN,TOTAL 0.3 mg/dL (0.2-1.0); MAGNESIUM 1.5 mg/dL (1.80-2.40); POTASSIUM 3.5 mmol/L (3.5-5.1); TOTAL PROTEIN, SERUM 6.8 g/dL (6.0-8.3)
[2024-03-25] MEDS: tamSULOsin HCL 0.4 MG CAP.ER.24H PO SCH (08:26)
[2024-03-25] MEDS: acetaMINOPHEN 325 MG TAB PO PRN (11:01)
[2024-03-25] MEDS: KETOROLAC 15MG/ML VIAL (15MG/ML) IV PRN (18:22)
[2024-03-25] MEDS: GABApentin 100 MG CAPSULE PO SCH (20:55)
[2024-03-25] MEDS: HYDROcodone/APAP 5/325 1 TAB TABLET PO PRN (21:00)
[2024-03-26 03:40] VITALS: BP 109/39; PULSE 67; RESP 17
[2024-03-26 04:43] LABS: BASOPHILS # (AUTO) 0.03 K/uL (0.00-0.20); BASOPHILS % (AUTO) 0.5 % (0.0-5.0); EOSINOPHILS # (AUTO) 0.49 K/uL (0.00-0.70); EOSINOPHILS % (AUTO) 7.8 % (0.0-8.0); HEMATOCRIT 32.7 % (36-48); IMMATURE GRANULOCYTE ABSOLUTE 0.03 K/uL (0-1); LYMPHOCYTES # (AUTO) 2.1 K/uL (1.0-4.8); LYMPHOCYTES % (AUTO) 33.4 % (21.0-51.0); MEAN CORPUSCULAR HEMOGLOBIN 28.7 pg (27.0-33.0); MEAN CORPUSCULAR HGB CONC 33.3 g/dL (32.0-36.0); MEAN CORPUSCULAR VOLUME 86.1 fL (79-99); MONOCYTES # (AUTO) 0.5 K/uL (0.1-1.0); MONOCYTES % (AUTO) 7.3 % (3.0-13.0); NEUTROPHILS # (AUTO) 3.2 K/uL (1.8-7.7); NEUTROPHILS % (AUTO) 50.5 % (40.0-77.0); PLATELET COUNT (AUTO) 344 K/uL (130-400); RED CELL DISTRIBUTION WIDTH 13.7 % (11.0-15.5); WHITE BLOOD COUNT (AUTO) 6.3 K/uL (4.8-10.8)
[2024-03-26 05:16] LABS: ALBUMIN 2.9 g/dL (3.5-5.0); BILIRUBIN,TOTAL 0.2 mg/dL (0.2-1.0); CREATININE 1.1 mg/dL (0.5-1.0); MAGNESIUM 1.8 mg/dL (1.80-2.40); POTASSIUM 3.8 mmol/L (3.5-5.1); TOTAL PROTEIN, SERUM 6.6 g/dL (6.0-8.3)
[2024-03-26 08:00] VITALS: BP 112/74; PULSE 78; RESP 16; O2SAT 95
[2024-03-26 12:00] VITALS: BP 108/58; PULSE 78; RESP 16
[2024-03-26 16:00] VITALS: BP 93/44; PULSE 72; RESP 16
[2024-03-26 20:00] VITALS: BP 111/46; PULSE 75; RESP 18
[2024-03-26 23:36] VITALS: BP 126/46; PULSE 68; RESP 18
[2024-03-27] VITALS: O2SAT 97
[2024-03-27 04:57] VITALS: BP 120/40; PULSE 70; RESP 18
[2024-03-27 05:43] LABS: BASOPHILS # (AUTO) 0.03 K/uL (0.00-0.20); BASOPHILS % (AUTO) 0.4 % (0.0-5.0); EOSINOPHILS % (AUTO) 6.8 % (0.0-8.0); HEMATOCRIT 32.8 % (36-48); IMMATURE GRANULOCYTE ABSOLUTE 0.04 K/uL (0-1); LYMPHOCYTES # (AUTO) 2.6 K/uL (1.0-4.8); LYMPHOCYTES % (AUTO) 34.9 % (21.0-51.0); MEAN CORPUSCULAR HEMOGLOBIN 28.8 pg (27.0-33.0); MEAN CORPUSCULAR HGB CONC 33.2 g/dL (32.0-36.0); MEAN CORPUSCULAR VOLUME 86.8 fL (79-99); MONOCYTES # (AUTO) 0.4 K/uL (0.1-1.0); MONOCYTES % (AUTO) 5.6 % (3.0-13.0); NEUTROPHILS # (AUTO) 3.8 K/uL (1.8-7.7); NEUTROPHILS % (AUTO) 51.8 % (40.0-77.0); PLATELET COUNT (AUTO) 357 K/uL (130-400); RED BLOOD CELL COUNT(AUTO) 3.78 MIL/uL (4.00-5.50); RED CELL DISTRIBUTION WIDTH 13.7 % (11.0-15.5); WHITE BLOOD COUNT (AUTO) 7.4 K/uL (4.8-10.8)
[2024-03-27 05:53] LABS: INR 0.95 (0.85-1.15); PROTHROMBIN TIME 10.3 SEC (9.6-11.6)
[2024-03-27 06:29] LABS: ALBUMIN 3.1 g/dL (3.5-5.0); BILIRUBIN,TOTAL 0.3 mg/dL (0.2-1.0); MAGNESIUM 1.7 mg/dL (1.80-2.40); POTASSIUM 4.1 mmol/L (3.5-5.1); TOTAL PROTEIN, SERUM 6.9 g/dL (6.0-8.3)
[2024-03-27 08:00] VITALS: BP 111/60; PULSE 78; RESP 20; O2SAT 98
[2024-03-27 11:49] VITALS: BP 120/61; PULSE 75; RESP 16
[2024-03-27] MEDS: acetaMINOPHEN 325 MG TAB PO PRN (15:19)
[2024-03-27 16:00] VITALS: BP 118/56; PULSE 66; RESP 18
[2024-03-27 20:00] VITALS: BP 122/70; PULSE 60; RESP 18; O2SAT 95
[2024-03-27] MEDS ORDERED: HYDROcodone/APAP 5/325 1 TAB TABLET PO PRN (23:55)
[2024-03-28] VITALS (7 sets, daily range): BP systolic 105–134; BP diastolic 49–70; PULSE 67–90; RESP 17–20; O2SAT 93–99
[2024-03-28] MEDS: HYDROcodone/APAP 5/325 1 TAB TABLET PO PRN (02:22)
[2024-03-28 03:25] LABS: BASOPHILS # (AUTO) 0.05 K/uL (0.00-0.20); BASOPHILS % (AUTO) 0.7 % (0.0-5.0); EOSINOPHILS # (AUTO) 0.58 K/uL (0.00-0.70); EOSINOPHILS % (AUTO) 7.7 % (0.0-8.0); HEMATOCRIT 36.4 % (36-48); IMMATURE GRANULOCYTE ABSOLUTE 0.05 K/uL (0-1); LYMPHOCYTES # (AUTO) 2.6 K/uL (1.0-4.8); MEAN CORPUSCULAR HEMOGLOBIN 29.5 pg (27.0-33.0); MEAN CORPUSCULAR HGB CONC 33.2 g/dL (32.0-36.0); MEAN CORPUSCULAR VOLUME 88.8 fL (79-99); MONOCYTES # (AUTO) 0.4 K/uL (0.1-1.0); MONOCYTES % (AUTO) 5.6 % (3.0-13.0); NEUTROPHILS # (AUTO) 3.9 K/uL (1.8-7.7); NEUTROPHILS % (AUTO) 51.3 % (40.0-77.0); PLATELET COUNT (AUTO) 370 K/uL (130-400); RED CELL DISTRIBUTION WIDTH 13.9 % (11.0-15.5); WHITE BLOOD COUNT (AUTO) 7.5 K/uL (4.8-10.8)
[2024-03-28 03:42] LABS: ALBUMIN 3.3 g/dL (3.5-5.0); BILIRUBIN,TOTAL 0.3 mg/dL (0.2-1.0); CREATININE 0.9 mg/dL (0.5-1.0); MAGNESIUM 1.7 mg/dL (1.80-2.40); POTASSIUM 4.1 mmol/L (3.5-5.1); TOTAL PROTEIN, SERUM 7.4 g/dL (6.0-8.3)
[2024-03-29] VITALS: BP 111/62; PULSE 75; RESP 20
[2024-03-29 03:47] LABS: BASOPHILS # (AUTO) 0.05 K/uL (0.00-0.20); BASOPHILS % (AUTO) 0.6 % (0.0-5.0); EOSINOPHILS # (AUTO) 0.55 K/uL (0.00-0.70); EOSINOPHILS % (AUTO) 6.6 % (0.0-8.0); HEMATOCRIT 38.1 % (36-48); IMMATURE GRANULOCYTE ABSOLUTE 0.06 K/uL (0-1); LYMPHOCYTES # (AUTO) 2.7 K/uL (1.0-4.8); LYMPHOCYTES % (AUTO) 32.2 % (21.0-51.0); MEAN CORPUSCULAR HEMOGLOBIN 29.1 pg (27.0-33.0); MEAN CORPUSCULAR HGB CONC 32.3 g/dL (32.0-36.0); MEAN CORPUSCULAR VOLUME 90.1 fL (79-99); MONOCYTES # (AUTO) 0.4 K/uL (0.1-1.0); NEUTROPHILS # (AUTO) 4.6 K/uL (1.8-7.7); NEUTROPHILS % (AUTO) 54.9 % (40.0-77.0); PLATELET COUNT (AUTO) 398 K/uL (130-400); RED BLOOD CELL COUNT(AUTO) 4.23 MIL/uL (4.00-5.50); RED CELL DISTRIBUTION WIDTH 14.1 % (11.0-15.5); WHITE BLOOD COUNT (AUTO) 8.3 K/uL (4.8-10.8)
[2024-03-29 04:00] VITALS: BP 135/72; PULSE 82; RESP 20
[2024-03-29 04:00] LABS: ALBUMIN 3.2 g/dL (3.5-5.0); BILIRUBIN,TOTAL 0.3 mg/dL (0.2-1.0); CREATININE 1.1 mg/dL (0.5-1.0); MAGNESIUM 1.7 mg/dL (1.80-2.40); POTASSIUM 4.5 mmol/L (3.5-5.1); TOTAL PROTEIN, SERUM 7.4 g/dL (6.0-8.3)
[2024-03-29 07:30] VITALS: BP 136/62; PULSE 96; RESP 20
[2024-03-29 09:00] VITALS: O2SAT 97
[2024-03-29 11:20] VITALS: BP 128/72; PULSE 94; RESP 20
[2024-03-29 15:20] VITALS: BP 120/66; PULSE 87; RESP 20
[2024-03-29] MEDS ORDERED: NITR100C4 PO (16:10)
[2024-03-29] MEDS ORDERED: GABA-529 PO (16:10)
[2024-03-29] MEDS ORDERED: ACET325C6 PO (16:10)
[2024-03-29] MEDS ORDERED: FAMO20TA8 PO (16:10)
== END 2024-03-29 17:30 | disposition home or self-care (01) ==
LOC: EDH 03:59 → EDHIP 04:00 → 4DH 22:11
PROVIDERS: ADMIT Internal Medicine Sleep Medicine; ATTEND Internal Medicine Sleep Medicine
DX: M54.16 Radiculopathy, lumbar region (principal); L02.416 Cutaneous abscess of left lower limb; G89.29 Other chronic pain; M48.07 Spinal stenosis, lumbosacral region; B96.20 Unspecified Escherichia coli [E. coli] as the cause of diseases classified elsewhere; E11.65 Type 2 diabetes mellitus with hyperglycemia; E86.0 Dehydration; E87.6 Hypokalemia; F31.9 Bipolar disorder, unspecified; I10 Essential (primary) hypertension; N17.9 Acute kidney failure, unspecified; N20.0 Calculus of kidney; N30.80 Other cystitis without hematuria; E66.9 Obesity, unspecified; Z87.891 Personal history of nicotine dependence; Z98.51 Tubal ligation status; Z90.49 Acquired absence of other specified parts of digestive tract; Z87.442 Personal history of urinary calculi; Z79.899 Other long term (current) drug therapy; Z98.890 Other specified postprocedural states; Z68.28 Body mass index [BMI] 28.0-28.9, adult
CPT/HCPCS: 96376 ×8; 96372 ×9; 96365; 96366 ×3; 96375 ×2; 99285; 80076 ×3; 80048 ×3; 83690; 85025 ×8; 82948 ×30; 83605 ×2; 36415 ×8; 71045; 72170; 72131; 72128; 74176; 93005; 96367; 83036; 82550; 83735 ×6; 83880; 82140; 84145; 87086 ×2; 87186; 81001; 97161; 97530 ×4; 80053 ×5; 97116 ×4; 85610; G0378 ×166; S0028 ×7; J2270 ×2; J2919; J0696 ×7; J1644 ×13; J1885 ×14; J1815 ×7; J3475 ×4; J3490

== ENCOUNTER 2024-05-17 19:51 | Emergency (ER) | payer MEDICAID ==
[~2024-05-17 19:51] MED LIST changes: +ACET325C6 PO; -CYCL5TAB PO; +FAMO20TA8 PO; +GABA-529 PO; -IBUP-2070 PO; -MACR100 PO; +NITR100C4 PO; +SULF1TAB42 PO
--- NOTE | 2024-05-17 20:13 | ERN ---
ED Note History of Present Illness Stated Complaint: LEFT LEG PAIN Chief Complaint: Lower Extremity Pain/Injury Time Seen by MD: 20:00 Dictation: PATIENT IS A 64-YEAR-OLD FEMALE COMING IN VIA EMS THAT WAS PICKUP FROM A LOCAL UNDER PASS AND STATES SHE IS HOMELESS. SHE STATES SHE HAS BEEN HAVING SEVERE LOW BACK PAIN THAT RUNS DOWN HER LEFT LEG FOR SEVERAL MONTHS. SHE STATES NORMALLY SHE IS ABLE TO WALK AROUND HOWEVER TODAY IT GOT PROGRESSIVELY WORSE AND SHE CALLED EMS. SHE DENIES ANY CHANGES IN BOWEL OR BLADDER FUNCTION, STATES SHE HAS NO DOCTOR NO CHRONIC PAIN MEDS. Allergies: Coded Allergies: ciprofloxacin (Unverified Allergy, Unknown, 01/20/21) Home Meds Active Scripts Sulfamethoxazole/Trimethoprim (Bactrim Ds Tablet) 800 Mg-160 Mg Tablet, 1 TAB PO BID for 7 Days, #14 TAB 0 Refills Prov:ERICA WEBB 04/17/24 Famotidine (Famotidine) 20 Mg Tablet, 20 MG PO ONCE for 10 Days, #10 TAB Prov:MARYANN FRANCES MD 03/29/24 Acetaminophen (Tylenol) 325 Mg Capsule, 325 MG PO Max 4 doses PRN for left lower extremity pain for 4 Days, #16 CAP Prov:MARYANN FRANCES MD 03/29/24 Nitrofurantoin Monohyd/M-Cryst (Macrobid 100 mg Capsule) 100 Mg Capsule, 100 MG PO BID for 10 Days, #20 CAP Prov:MARYANN FRANCES MD 03/29/24 Gabapentin (Gabapentin) 100 Mg Capsule, 100 MG PO BID for 15 Days, #30 CAP Prov:MARYANN FRANCES MD 03/29/24 Past Medical History Past Medical History: Anxiety, Bipolar, Diabetes-Type II, Hypertension Additional Past Medical Hx: KIDNEY STONES Surgical History: None Surgical History Other: RENAL STENT Family History: Negative Social History: Smokers, ETOH, Other History: Not Applicable RN Note Reviewed/Agreed w/PFSH: Yes Review of System Dictation CONSTITUTIONAL: NEGATIVE EXCEPT FOR HPI HEAD/FACE: NEGATIVE EXCEPT FOR HPI EENT: NEGATIVE EXCEPT FOR HPI RESPIRATORY: NEGATIVE EXCEPT FOR HPI GASTROINTESTINAL/ABDOMINAL: NEGATIVE EXCEPT FOR HPI GENITOURINARY: NEGATIVE EXCEPT FOR HPI MUSCULOSKELETAL: NEGATIVE EXCEPT FOR HPI DIFFUSE LUMBAR PAIN INTEGUMENTARY: NEGATIVE EXCEPT FOR HPI NEUROLOGICAL/PSYCH: NEGATIVE EXCEPT FOR HPI HEMATOLOGIC/LYMPHATIC: NEGATIVE EXCEPT FOR HPI ALL SYSTEMS NEGATIVE, EXCEPT NOTED ABOVE. 13 POINT REVIEW OF SYSTEMS ASSESSED AND ALL NEGATIVE EXCEPT FOR ABOVE. Initial Vital Sign VS Vital Signs Date Time Temp Pulse Resp B/P (MAP) Pulse Ox O2 Delivery O2 Flow Rate FiO2 05/17/24 19:57 97.9 85 16 156/76 97 Room Air 0 Physical Exam Dictation VITAL SIGNS REVIEWED GENERAL APPEARANCE: ALERT, ORIENTED X 3, MODERATE ACUTE DISTRESS, WELL DEVELOPED, NOURISHED. HEAD AND FACE: NON-TRAUMATIC. EYES: PERRL, PINK CONJUNCTIVAS, EYELID NO TRAUMA, ANTERIOR CHAMBER WITH ARCUS SENILIS. EARS: PINNAS INTACT AND NO SIGNS OF TRAUMA OR ERYTHEMA EAR CANALS CLEAR AND NO DISCHARGE TM NO ERYTHEMA NOSE: NO DISCHARGE, NO BLEEDING. OROPHARYNX: MOUTH NORMAL, TONGUE PINK, PHARYNX CLEAR,NO ERYTHEMA, TONSILS NO EXUDATES, NO ABSCESSES NOTED, MUCOUS MEMBRANE MOIST NECK: SUPPLE, NON-TENDER, NO THYROMEGALY, NO MASSES, NO JVD, NO BRUITS BREAST:DEFERRED CHEST:NO TENDERNESS, NO CREPITUS, NO PARADOXICAL MOVEMENT, NO RETRACTIONS LUNGS:CLEAR, WELL-VENTILATED, SYMMETRIC, NO RALES, NO WHEEZING, NO RHONCHI, NO STRIDOR, GOOD BREATH SOUNDS BILATERALLY HEART: REGULAR RATE, REGULAR RHYTHM, NO MURMUR, NO GALLOPS VASCULAR: NO PERIPHERAL EDEMA, ABDOMEN: SOFT, POSITIVE BOWEL SOUNDS, NONDISTENDED, NO GUARDING, NONTENDER, NO REBOUND, NO MASSES NO HEPATOMEGALY, NO SPLENOMEGALY, NO RIVERA'S SIGN, NO HERNIAS. RECTAL: DEFERRED GENITAL: DEFERRED NEUROLOGICAL: NORMAL SPEECH, MOTOR FUNCTION INTACT, SENSORY FUNCTION INTACT MUSCULOSKELETAL: NECK NONTENDER, FULL RANGE OF MOTION, DIFFUSE LUMBAR PAIN NO MIDLINE SPINE PAIN OR STEP-OFF. EXTREMITIES: NONTENDER, FULL RANGE OF MOTION SKIN: COLOR PINK, DRY, NO TURGOR, NO RASH, NO LACERATIONS, NO ABRASIONS, NO CONTUSIONS. LYMPHATIC: DEFERRED Results (Laboratory/Radiology) Labs Reviewed?: Yes ED Course ED Course Orders Procedure Category Date Status Time Methylprednisolone PHA 05/17/24 Complete Succ 125mg (Solu-Medr 20:30 Ketorolac 60mg/2ml PHA 05/17/24 Complete (Toradol 60mg/2ml) 20:30 Current Medications Medications (Trade) Dose Ordered Sig/Michelle Route PRN Reason Start Time Stop Time Status Last Admin Dose Admin Ketorolac Tromethamine (toRADol 60MG/ 2ML) 60 mg ONCE ONCE IM 05/17/24 20:30 05/17/24 20:31 DC 05/17/24 20:35 Methylprednisolone Sodium Succinate (Solu-medROL 125MG) 125 mg ONCE ONCE IM 05/17/24 20:30 05/17/24 20:31 DC 05/17/24 20:35 Vital Signs Date Time Temp Pulse Resp B/P (MAP) Pulse Ox O2 Delivery O2 Flow Rate FiO2 05/17/24 19:57 97.9 85 16 156/76 97 Room Air 0 2107/HE HAS MODERATELY IMPROVED PATIENT DISCHARGED HOME WITH FLEXERIL AND IBUPROFEN TOLD TO SEE HER PRIMARY CARE DOCTOR Medical Decision Making MDM MEDICAL DISCHARGE MAKING BASED ON EMPIRIC TREATMENT OF LUMBAR PAIN WITH RADICULOPATHY. PATIENT GIVEN IBUPROFEN AND FLEXERIL TOLD TO FOLLOW UP WITH THE PRIMARY CARE DOCTOR SOON POSSIBLE. DX & DISP Disposition: Discharge Departure Impression: Primary Impression: Acute exacerbation of chronic low back pain Additional Impression: Chronic sciatica of left side Condition: Stable Scripts Cyclobenzaprine HCl (Cyclobenzaprine HCl) 10 Mg Tablet 1 TAB PO TID for muscle spasms for 10 Days, #30 TAB 0 Refills Prov: ASHIA VARGHESE INTERNAL CONTROL SPECIALIST 05/17/24 Ibuprofen (Ibuprofen 800 mg Tab) 800 Mg Tab 800 MG PO Q8H PRN for fever or pain, #30 TAB 0 Refills Prov: ASHIA VARGHESE INTERNAL CONTROL SPECIALIST 05/17/24 Additional Instructions: FOLLOW-UP WITH PRIMARY CARE PROVIDER IN 1 TO 2 DAYS. TAKE MEDICATIONS DIRECTED HERE IN THE EMERGENCY ROOM. OKAY TO CONTINUE HOME MEDICATIONS UNLESS OTHERWISE DISCUSSED DURING YOUR VISIT IN THE EMERGENCY ROOM TODAY. RETURN TO YOUR NEAREST EMERGENCY ROOM IF SYMPTOMS WORSEN OR IF THERE IS NO IMPROVEMENT. CALL 911 IF YOU NEED IMMEDIATE ASSISTANCE. TAKE TYLENOL OR MOTRIN [id number] NEEDED AND IF NO CONTRAINDICATIONS ARE PRESENT. INCREASE ORAL HYDRATION. A WOUND CULTURE OR URINE CULTURE WAS ORDERED HERE IN THE EMERGENCY ROOM DEPARTMENT PLEASE FOLLOW-UP WITH PRIMARY CARE PROVIDER AND ADVISE THEM TO GET REPEAT PORTS FROM OUR FACILITY. IF YOU HAD ANY DANUTA WRAP/SPLINTS THAT WERE APPLIED HERE, PLEASE DO NOT REMOVE THEM UNTIL YOU SEE YOUR PRIMARY CARE OR SPECIALTY. TAKE IBUPROFEN AND FLEXERIL EVERY8 HOURS WITH FOOD FOR THE NEXT THREE DAYS. SEE YOUR PRIMARY CARE DOCTOR FOR FOLLOW UP IN 1-2 DAYS. Referrals: NONE (PCP) Time of Disposition: 21:10 I have reviewed the case, and I agree with, Diagnosis and Plan ASHIA VARGHESE NP May 17, 2024 20:13
[2024-05-17] MEDS: ketOROlac 60 MG VIAL (30MG/ML) IM ONE (20:35)
[2024-05-17] MEDS: Solu-medROL 125MG VIAL IM ONE (20:35)
[2024-05-17] MEDS ORDERED: CYCL-309 PO (21:12)
[2024-05-17] MEDS ORDERED: IBUP-2077 PO (21:12)
[2024-05-17 21:32] VITALS: BP 150/75; PULSE 80; RESP 16; TEMP 97.8; O2SAT 97
== END 2024-05-17 21:46 | disposition home or self-care (01) ==
LOC: EDH 19:51
DX: G89.29 Other chronic pain (principal); M54.42 Lumbago with sciatica, left side; F41.9 Anxiety disorder, unspecified; E11.9 Type 2 diabetes mellitus without complications; I10 Essential (primary) hypertension; F31.9 Bipolar disorder, unspecified; F17.200 Nicotine dependence, unspecified, uncomplicated; Z88.1 Allergy status to other antibiotic agents
CPT/HCPCS: 99284; 96372 ×2; J2919; J1885

== ENCOUNTER 2024-05-26 19:06 | Emergency (ER) | payer MEDICAID ==
[~2024-05-26 19:06] MED LIST changes: +CYCL-309 PO; +IBUP-2077 PO
--- NOTE | 2024-05-26 19:30 | ERN ---
ED Note History of Present Illness Stated Complaint: LEG PAIN, DIARRHEA Chief Complaint: Lower Extremity Pain/Injury Time Seen by MD: 19:07 Dictation: PATIENT IS A 64-YEAR-OLD FEMALE COMING IN TODAY WITH TWO COMPLAINTS 1ST COMPLAINT IS SHE HAS CHRONIC LEFT LEG PAIN SHE HAS HAD FOR SEVERAL MONTHS. HAS ALREADY BEEN SEEN AT MULTIPLE HOSPITALS INCLUDE [facility] LAST WEEK FOR THE SAME COMPLAINT WITH X-RAYS NEGATIVE AND DISCHARGED HOME. SECOND COMPLAINT IS SHE HAS RIGHT LOWER QUADRANT PAIN TENDERNESS WITHOUT NAUSEA VOMITING FEVER CHILLS. NO CHANGE IN URINATION NO FLANK PAIN. SHE HAS NOT BEEN TO SEE HER DOCTOR AT [facility] YET Allergies: Coded Allergies: ciprofloxacin (Unverified Allergy, Unknown, 01/20/21) Home Meds Active Scripts Cyclobenzaprine HCl (Cyclobenzaprine HCl) 10 Mg Tablet, 1 TAB PO TID for muscle spasms for 10 Days, #30 TAB 0 Refills Prov:ASHIA VARGHESE NP 05/17/24 Ibuprofen (Ibuprofen 800 mg Tab) 800 Mg Tab, 800 MG PO Q8H PRN for fever or pain, #30 TAB 0 Refills Prov:ASHIA VARGHESE NP 05/17/24 Sulfamethoxazole/Trimethoprim (Bactrim Ds Tablet) 800 Mg-160 Mg Tablet, 1 TAB PO BID for 7 Days, #14 TAB 0 Refills Prov:ERICA WEBB 04/17/24 Famotidine (Famotidine) 20 Mg Tablet, 20 MG PO ONCE for 10 Days, #10 TAB Prov:MARYANN FRANCES MD 03/29/24 Acetaminophen (Tylenol) 325 Mg Capsule, 325 MG PO Max 4 doses PRN for left lower extremity pain for 4 Days, #16 CAP Prov:MARYANN FRANCES MD 03/29/24 Nitrofurantoin Monohyd/M-Cryst (Macrobid 100 mg Capsule) 100 Mg Capsule, 100 MG PO BID for 10 Days, #20 CAP Prov:MARYANN FRANCES MD 03/29/24 Gabapentin (Gabapentin) 100 Mg Capsule, 100 MG PO BID for 15 Days, #30 CAP Prov:MARYANN FRANCES MD 03/29/24 Past Medical History Past Medical History: Anxiety, Bipolar, Diabetes-Type II, Hypertension Additional Past Medical Hx: KIDNEY STONES Surgical History: None Surgical History Other: RENAL STENT Family History: Negative Social History: Smokers, ETOH, Other History: Not Applicable RN Note Reviewed/Agreed w/PFSH: Yes Review of System Dictation CONSTITUTIONAL: NEGATIVE EXCEPT FOR HPI HEAD/FACE: NEGATIVE EXCEPT FOR HPI EENT: NEGATIVE EXCEPT FOR HPI RESPIRATORY: NEGATIVE EXCEPT FOR HPI GASTROINTESTINAL/ABDOMINAL: NEGATIVE EXCEPT FOR HPI RIGHT LOWER QUADRANT PAIN GENITOURINARY: NEGATIVE EXCEPT FOR HPI MUSCULOSKELETAL: NEGATIVE EXCEPT FOR HPI LEFT LEG PAIN INTEGUMENTARY: NEGATIVE EXCEPT FOR HPI NEUROLOGICAL/PSYCH: NEGATIVE EXCEPT FOR HPI HEMATOLOGIC/LYMPHATIC: NEGATIVE EXCEPT FOR HPI ALL SYSTEMS NEGATIVE, EXCEPT NOTED ABOVE. 13 POINT REVIEW OF SYSTEMS ASSESSED AND ALL NEGATIVE EXCEPT FOR ABOVE. Initial Vital Sign VS Vital Signs Date Time Temp Pulse Resp B/P (MAP) Pulse Ox O2 Delivery O2 Flow Rate FiO2 05/26/24 19:52 97.9 90 18 130/67 100 Room Air* 0 21 Physical Exam Dictation VITAL SIGNS REVIEWED GENERAL APPEARANCE: ALERT, ORIENTED X 3, MILD ACUTE DISTRESS, WELL DEVELOPED, NOURISHED. HEAD AND FACE: NON-TRAUMATIC. EYES: PERRL, PINK CONJUNCTIVAS, EYELID NO TRAUMA, ANTERIOR CHAMBER WITH ARCUS SENILIS. EARS: PINNAS INTACT AND NO SIGNS OF TRAUMA OR ERYTHEMA EAR CANALS CLEAR AND NO DISCHARGE TM NO ERYTHEMA NOSE: NO DISCHARGE, NO BLEEDING. OROPHARYNX: MOUTH NORMAL, TONGUE PINK, PHARYNX CLEAR,NO ERYTHEMA, TONSILS NO EXUDATES, NO ABSCESSES NOTED, MUCOUS MEMBRANE MOIST NECK: SUPPLE, NON-TENDER, NO THYROMEGALY, NO MASSES, NO JVD, NO BRUITS BREAST:DEFERRED CHEST:NO TENDERNESS, NO CREPITUS, NO PARADOXICAL MOVEMENT, NO RETRACTIONS LUNGS:CLEAR, WELL-VENTILATED, SYMMETRIC, NO RALES, NO WHEEZING, NO RHONCHI, NO STRIDOR, GOOD BREATH SOUNDS BILATERALLY HEART: REGULAR RATE, REGULAR RHYTHM, NO MURMUR, NO GALLOPS VASCULAR: NO PERIPHERAL EDEMA, ABDOMEN: SOFT, POSITIVE BOWEL SOUNDS, NONDISTENDED, NO GUARDING, MILD RIGHT LOWER QUADRANT PAIN WITHOUT REBOUND TENDERNESS. NEGATIVE CVAT BILATERALLY. PATIENT STATES GALLBLADDER SURGICALLY ABSENT RECTAL: DEFERRED GENITAL: DEFERRED NEUROLOGICAL: NORMAL SPEECH, MOTOR FUNCTION INTACT, SENSORY FUNCTION INTACT MUSCULOSKELETAL: NECK NONTENDER, FULL RANGE OF MOTION, BACK NONTENDER, FULL RANGE OF MOTION, EXTREMITIES: PATIENT HAS CHRONIC LEFT LOWER LEG PAIN SHE SAID SHE HAS HAD FOR SEVERAL MONTHS. SKIN: COLOR PINK, DRY, NO TURGOR, NO RASH, NO LACERATIONS, NO ABRASIONS, NO CONTUSIONS. LYMPHATIC: DEFERRED Results (Laboratory/Radiology) Laboratory/Radiology Laboratory Tests Test 05/26/24 20:09 05/26/24 21:45 White Blood Count 10.1 K/uL (4.8-10.8) Red Blood Count 4.73 MIL/uL (4.00-5.50) Hemoglobin 13.8 g/dL (12.0-16.0) Hematocrit 41.1 % (36-48) Mean Corpuscular Volume 86.9 fL (79-99) Mean Corpuscular Hemoglobin 29.2 pg (27.0-33.0) Mean Corpuscular Hemoglobin Concent 33.6 g/dL (32.0-36.0) Red Cell Distribution Width 13.3 % (11.0-15.5) Platelet Count 426 K/uL (130-400) H Mean Platelet Volume 9.2 fL (7.5-10.5) Immature Granulocyte % (Auto) 0.6 % (0-1) Neutrophils (%) (Auto) 62.4 % (40.0-77.0) Lymphocytes (%) (Auto) 28.5 % (21.0-51.0) Monocytes (%) (Auto) 5.0 % (3.0-13.0) Eosinophils (%) (Auto) 2.9 % (0.0-8.0) Basophils (%) (Auto) 0.6 % (0.0-5.0) Neutrophils # (Auto) 6.3 K/uL (1.8-7.7) Lymphocytes # (Auto) 2.9 K/uL (1.0-4.8) Monocytes # (Auto) 0.5 K/uL (0.1-1.0) Eosinophils # (Auto) 0.29 K/uL (0.00-0.70) Basophils # (Auto) 0.06 K/uL (0.00-0.20) Absolute Immature Granulocyte (auto 0.06 K/uL (0-1) Nucleated Red Blood Cells 0.0 % (0.0-0.19) Sodium Level 133 mmol/L (136-145) L Potassium Level 3.1 mmol/L (3.5-5.1) L Chloride Level 100 mmol/L (101-111) L Carbon Dioxide Level 25 mmol/L (21-32) Blood Urea Nitrogen 12 mg/dL (7-18) Creatinine 0.9 mg/dL (0.5-1.0) Glomerular Filtration Rate Calc 72 mL/min (>90) Random Glucose 259 mg/dL (70-105) H Total Calcium 9.7 mg/dL (8.5-10.1) Total Creatine Kinase 52 U/L (21-232) # Salicylates Level 2.9 mg/dL (2.8-20.0) Acetaminophen Level < 1 mcg/mL (10-30) L Serum Alcohol 6 mg/dL (0-10) Urine Color YELLOW (YELLOW) Urine Appearance CLOUDY (CLEAR) H Urine pH 6.0 (5.0-8.0) Urine Specific [place] OVER (1.001-1.031) Urine Protein 50 mg/dL (NEGATIVE) H Urine Glucose (UA) 70 mg/dL (NEGATIVE) H Urine Ketones NEGATIVE mg/dL (NEGATIVE) Urine Occult Blood SMALL (NEGATIVE) H Urine Nitrate NEGATIVE (NEGATIVE) Urine Bilirubin NEGATIVE mg/dL (NEGATIVE) Urine Urobilinogen 0.2 mg/dL (0.2-1.0) Urine Leukocyte Esterase 500 Elina/uL (NEGATIVE) H Urine RBC 51-100 /HPF (0-1) H Urine WBC 51-100 /HPF (0-1) H Urine Squamous Epithelial Cells FEW /HPF (0-2) Urine Other Crystals (Auto) 3 /HPF (None Seen) Urine Bacteria MOD /HPF (None Seen) Urine Yeast FEW /HPF (None Seen) Urine Opiates Screen NEGATIVE (NEGATIVE) Urine Barbiturates Screen NEGATIVE (NEGATIVE) Urine Phencyclidine Screen NEGATIVE (NEGATIVE) Urine Amphetamines Screen NEGATIVE (NEGATIVE) Urine Benzodiazepines Screen NEGATIVE (NEGATIVE) Urine Cocaine Screen POSITIVE (NEGATIVE) H Urine Marijuana (THC) Screen NEGATIVE (NEGATIVE) REASON: ACUTE RIGHT LOWER QUADRANT PAIN TENDERNESS ORDERING PHYSICIAN: ASHIA VARGHESE NP PROCEDURE: ABD PEL W - CT ABDOMEN/PELVIS W/CONTRAST CT ABDOMEN/PELVIS W/CONTRAST CLINICAL HISTORY: ACUTE RIGHT LOWER QUADRANT PAIN TENDERNESS COMPARISON: 03/22/2024 TECHNIQUE: Sequential axial images of abdomen and pelvis with 100 mL of Omnipaque 350 IV contrast with sagittal and coronal reconstructions. CT was performed with one or more of the following dose reduction techniques: automated exposure control, adjustment of the mA and/or kV according to patient size, or use of iterative reconstruction technique. FINDINGS: There is minimal dependent atelectasis in the right lower lobe. The gallbladder is surgically absent there is mild intrahepatic ductal dilatation. The spleen is unremarkable. There is bilateral renal cortical scarring. There is no identified hydronephrosis or nephrolithiasis. Delay images were not provided as the patient was unable to complete the scan for delayed imaging. Note is made of a moderate anterior fluid level in the bladder. There is mild edema of the cecum and proximal ascending colon. There is scattered colonic diverticuli. Note is made of a small lipoma of the terminal ileum. There is no free air or free fluid. There is no bulky abdominal or retroperitoneal lymphadenopathy. The appendix is not definitely identified but there are no findings suspicious for acute appendicitis. The uterus is unremarkable. The bony structures again demonstrate bilateral pars defects at L5 with grade 1 anterolisthesis of L5 on S1 and vacuum disc phenomena. There is mild calcified atherosclerotic vascular disease of the aorta without aneurysmal dilatation. IMPRESSION: Bilateral renal cortical scarring on this study with no delayed images. There is however no identified hydronephrosis. This likely punctate nonobstructive right renal calculus. Air-fluid level in the bladder suggesting fistula or recent instrumentation or infection. Findings suggestive of mild cecal and ascending colon colitis. Labs Reviewed?: Yes EKG Comment: EKG SINUS RHYTHM HEART RATE 80/NONSPECIFIC T-WAVE CHANGE LATERAL LEADS V4 FIVE AND SIX. ED Course ED Course Orders Procedure Category Date Status Time Cbc With Differential LAB 05/26/24 Complete 19:28 Urinalysis Profile LAB 05/26/24 Complete 19:28 Ct Abdomen/Pelvis CT 05/26/24 Resulted W/Contrast 19:28 0.9%Nacl 1000ml (Ns PHA 05/26/24 Complete 1000ml) 19:30 Ketorolac PHA 05/26/24 Complete Tromethamine 30mg/Ml 19:30 Basic Metabolic Panel LAB 05/26/24 Complete 19:28 Iohexol (Omnipaque) PHA 05/26/24 Complete 20:33 Morphine 2mg Syg PHA 05/26/24 Complete (Morphine 2mg Syg) 21:00 Ondansetron 4mg Inj PHA 05/26/24 Complete (Zofran 4mg Inj) 21:00 Potassium Bicarb/Cit PHA 05/26/24 Complete Ac 25meq (K-Lyte Ta 21:00 Drug Screen Urine LAB 05/26/24 Complete 21:42 Alcohol, Blood LAB 05/26/24 Complete 21:42 Salicylate LAB 05/26/24 Complete 21:42 Acetaminophen LAB 05/26/24 Complete 21:42 12 Lead Ekg Tracing- EKG 05/26/24 Logged Technical 21:42 Creatine Kinase, Total LAB 05/26/24 Complete 21:42 Culture Urine RONNELL 05/26/24 In Process 22:13 Current Medications Medications (Trade) Dose Ordered Sig/Michelle Route PRN Reason Start Time Stop Time Status Last Admin Dose Admin Iohexol (Omnipaque) 75 ml STK-MED ONCE IV 05/26/24 20:33 05/26/24 20:34 DC Ketorolac Tromethamine (toRADol) 30 mg ONCE ONCE IVP 05/26/24 19:30 05/26/24 19:31 DC 05/26/24 20:08 Morphine Sulfate (morPHINE 2MG SYG) 2 mg ONCE ONCE IVP 05/26/24 21:00 05/26/24 21:01 DC 05/26/24 20:48 Ondansetron HCl (zoFRAN 4MG INJ) 4 mg ONCE ONCE IVP 05/26/24 21:00 05/26/24 21:01 DC 05/26/24 20:52 Potassium Bicarbonate (K-Lyte Tablet Eff 25 Meq Tablet.eff) 50 meq ONCE ONCE PO 05/26/24 21:00 05/26/24 21:11 DC 05/26/24 22:37 Sodium Chloride 1,000 ml @ 0 mls/hr ONCE ONCE IV 05/26/24 19:30 05/26/24 19:31 DC 05/26/24 20:08 Vital Signs Date Time Temp Pulse Resp B/P (MAP) Pulse Ox O2 Delivery O2 Flow Rate FiO2 05/27/24 00:00 80 18 108/63 95 Room Air* 0 05/26/24 23:00 83 16 96/30 96 Room Air* 0 05/26/24 22:00 85 18 125/48 96 Room Air* 0 05/26/24 21:00 86 18 133/61 96 Room Air* 0 05/26/24 19:52 97.9 90 18 130/67 100 Room Air* 0 0 APPROACH PATIENT ABOUT GETTING URINE AND SHE BECAME TEARFUL AND STATES SHE CAN NO LONGER GO ON LIVING LIKE THIS AND WANTS TO . SHE STATES SHE DOES NOT HAVE A PLAN BUT SHE SAYS HER LIFE IS HORRIBLE, [place] AND CAN NO LONGER TAKE THE CONDITIONS. I WE WILL BEGIN LABS FOR MEDICAL CLEARANCE FOR PSYCH AND THEN HAVE HER EVALUATED. 0 100, PATIENT WAS SCREENED BY SIMIN, DOES NOT MEET CRITERIA FOR ADMISSION HOWEVER SHE HAS OUTPATIENT APPOINTMENT IN 1-2 DAYS. SHE WILL BE DISCHARGED HOME WITH BENTYL AND TOLD TO STOP DOING COCAINE OR RISK HEART ATTACK, STROKE OR INSTANT . Medical Decision Making MDM MDM: DIFFERENTIAL DIAGNOSIS: APPENDICITIS/DIVERTICULITIS/URINARY TRACT INFECTION/ELECTROLYTE IMBALANCE/DEHYDRATION/SUICIDALITY/DEPRESSION/CHRONIC LEFT LEG PAIN RATIONALE: TESTS CONSIDERED AND ORDERED SECONDARY TO SHARED DECISION MAKING INCLUDE: EKG/LABS/RADIOLOGY PREVIOUS OUTSIDE RECORDS REVIEWED: OLD ER VISITS. REVIEWED RISK OF COMPLICATION AND/OR MORBIDITY OR MORTALITY OF PATIENT MANAGEMENT: MODERATE TO SEVERE IF CONTINUES COCAINE ABUSE OUTSIDE THE HOSPITAL MEDICATIONS-PER MEDICATION RECONCILIATION NONE NEED FOR HOSPITALIZATION: PATIENT DOES NOT MEET CRITERIA FOR HOSPITALIZATION. NEED FOR EMERGENCY MAJOR/MINOR SURGERY: NO THERE ARE NO SOCIAL CONCERNS WITH THIS PATIENT. PATIENT ABUSES COCAINE PRESCRIPTION DRUG MANAGEMENT BENTYL/FLAGYL PRESCRIPTIONS WILL INCLUDE SYMPTOMATIC CARE PATIENT'S PRIOR EXTERNAL MEDICAL RECORDS FROM OTHER ER VISITS WERE REVIEWED BY ME INDICATED. PRIOR TESTING AND RESULTS FROM PREVIOUS VISITS WERE REVIEWED. PRIOR TESTS WERE TAKEN INTO ACCOUNT WITH MEDICAL DECISION MAKING AND RESOURCE UTILIZATION, INDEPENDENT HISTORIAN/HISTORIANS WERE USED TO OBTAIN COMPLETE MEDICAL HISTORY. I INDEPENDENTLY INTERPRETED THE TEST THAT WERE PERFORMED, RESULTS WERE REVIEWED BY ME AND CONSIDERED FINDINGS ON RADIOLOGY IF ORDERED. MEDICAL MANAGEMENT AND EXAMINATION INTERPRETATION DISCUSSIONS WERE HAD BY ME WITH OTHER QUALIFIED HEALTHCARE PROFESSIONALS INDICATED FOR THE PATIENT'S CARE. DX & DISP Disposition: Discharge Departure Impression: Primary Impression: Acute colitis Additional Impressions: Hypokalemia, Hyponatremia, Uncontrolled diabetes mellitus, Cocaine abuse, Passive suicidal ideations, Chronic pain of left lower extremity Condition: Stable Scripts Metronidazole (Metronidazole) 500 Mg Tablet 1 TAB PO TID for 7 Days, #21 TAB 0 Refills Prov: ASHIA VARGHESE TRUST VAULT CLERK 05/27/24 Dicyclomine HCl (Bentyl) 20 Mg Tab 20 MG PO QIDP PRN for ABDOMINAL CRAMPING, #30 TAB Prov: ASHIA VARGHESE TRUST VAULT CLERK 05/27/24 Additional Instructions: FOLLOW-UP WITH PRIMARY CARE PROVIDER IN 1 TO 2 DAYS. TAKE MEDICATIONS DIRECTED HERE IN THE EMERGENCY ROOM. OKAY TO CONTINUE HOME MEDICATIONS UNLESS OTHERWISE DISCUSSED DURING YOUR VISIT IN THE EMERGENCY ROOM TODAY. RETURN TO YOUR NEAREST EMERGENCY ROOM IF SYMPTOMS WORSEN OR IF THERE IS NO IMPROVEMENT. CALL 911 IF YOU NEED IMMEDIATE ASSISTANCE. TAKE TYLENOL OR MOTRIN [id number] NEEDED AND IF NO CONTRAINDICATIONS ARE PRESENT. INCREASE ORAL HYDRATION. A WOUND CULTURE OR URINE CULTURE WAS ORDERED HERE IN THE EMERGENCY ROOM DEPARTMENT PLEASE FOLLOW-UP WITH PRIMARY CARE PROVIDER AND ADVISE THEM TO GET REPEAT PORTS FROM OUR FACILITY. IF YOU HAD ANY DANUTA WRAP/SPLINTS THAT WERE APPLIED HERE, PLEASE DO NOT REMOVE THEM UNTIL YOU SEE YOUR PRIMARY CARE OR SPECIALTY. TAKE FLAGYL DIRECTED FOR SEVEN DAYS. TAKE BENTYL DIRECTED FOR CRAMPING. FOLLOW UP WITH YOUR PRIMARY CARE DOCTOR IN 1-2 DAYS AND FOLLOW UP WITH TROPICAL INSTRUCTED IN YOUR PSYCHIATRIC SCREEN TONIGHT. STOP USING COCAINE OR RISK HEART ATTACK, STROKE, INSTANT . Referrals: LUPE CUADRA DO (PCP) Time of Disposition: 01:03 I have reviewed the case, and I agree with, Diagnosis and Plan ASHIA VARGHESE NP May 26, 2024 19:30
[2024-05-26 19:52] VITALS: TEMP 97.9
[2024-05-26] MEDS: ketOROlac 30MG VIAL (30MG/ML) IVP ONE (20:08)
[2024-05-26] MEDS: 0.9%NACL 1000ML 1,000 ML IV ONE (20:08)
[2024-05-26 20:17] LABS: BASOPHILS # (AUTO) 0.06 K/uL (0.00-0.20); BASOPHILS % (AUTO) 0.6 % (0.0-5.0); EOSINOPHILS # (AUTO) 0.29 K/uL (0.00-0.70); EOSINOPHILS % (AUTO) 2.9 % (0.0-8.0); HEMATOCRIT 41.1 % (36-48); IMMATURE GRANULOCYTE ABSOLUTE 0.06 K/uL (0-1); LYMPHOCYTES # (AUTO) 2.9 K/uL (1.0-4.8); LYMPHOCYTES % (AUTO) 28.5 % (21.0-51.0); MEAN CORPUSCULAR HEMOGLOBIN 29.2 pg (27.0-33.0); MEAN CORPUSCULAR HGB CONC 33.6 g/dL (32.0-36.0); MEAN CORPUSCULAR VOLUME 86.9 fL (79-99); MONOCYTES # (AUTO) 0.5 K/uL (0.1-1.0); NEUTROPHILS # (AUTO) 6.3 K/uL (1.8-7.7); NEUTROPHILS % (AUTO) 62.4 % (40.0-77.0); PLATELET COUNT (AUTO) 426 K/uL (130-400); RED BLOOD CELL COUNT(AUTO) 4.73 MIL/uL (4.00-5.50); RED CELL DISTRIBUTION WIDTH 13.3 % (11.0-15.5); WHITE BLOOD COUNT (AUTO) 10.1 K/uL (4.8-10.8)
[2024-05-26 20:27] LABS: CREATININE 0.9 mg/dL (0.5-1.0); POTASSIUM 3.1 mmol/L (3.5-5.1)
[2024-05-26] MEDS ORDERED: IOHEXOL-350 75 ML VIAL IV ONE (20:33)
[2024-05-26] MEDS: morPHINE 2 MG SYG IVP ONE (20:48)
[2024-05-26] MEDS: ondanSETRON 4MG INJ IVP ONE (20:52)
--- NOTE | 2024-05-26 21:28 | HMCIMG ---
CT ABDOMEN/PELVIS W/CONTRAST CLINICAL HISTORY: ACUTE RIGHT LOWER QUADRANT PAIN TENDERNESS COMPARISON: 03/22/2024 TECHNIQUE: Sequential axial images of abdomen and pelvis with 100 mL of Omnipaque 350 IV contrast with sagittal and coronal reconstructions. CT was performed with one or more of the following dose reduction techniques: automated exposure control, adjustment of the mA and/or kV according to patient size, or use of iterative reconstruction technique. FINDINGS: There is minimal dependent atelectasis in the right lower lobe. The gallbladder is surgically absent there is mild intrahepatic ductal dilatation. The spleen is unremarkable. There is bilateral renal cortical scarring. There is no identified hydronephrosis or nephrolithiasis. Delay images were not provided as the patient was unable to complete the scan for delayed imaging. Note is made of a moderate anterior fluid level in the bladder. There is mild edema of the cecum and proximal ascending colon. There is scattered colonic diverticuli. Note is made of a small lipoma of the terminal ileum. There is no free air or free fluid. There is no bulky abdominal or retroperitoneal lymphadenopathy. The appendix is not definitely identified but there are no findings suspicious for acute appendicitis. The uterus is unremarkable. The bony structures again demonstrate bilateral pars defects at L5 with grade 1 anterolisthesis of L5 on S1 and vacuum disc phenomena. There is mild calcified atherosclerotic vascular disease of the aorta without aneurysmal dilatation. IMPRESSION: Bilateral renal cortical scarring on this study with no delayed images. There is however no identified hydronephrosis. This likely punctate nonobstructive right renal calculus. Air-fluid level in the bladder suggesting fistula or recent instrumentation or infection. Findings suggestive of mild cecal and ascending colon colitis.
[2024-05-26 21:59] LABS: ALCOHOL, BLOOD 6 mg/dL (0-10); CREATINE KINASE, TOTAL 52 U/L (21-232); SALICYLATE 2.9 mg/dL (2.8-20.0)
[2024-05-26 22:01] LABS: ACETAMINOPHEN < 1 mcg/mL (10-30)
[2024-05-26 22:12] LABS: APPEARANCE,URINE CLOUDY (CLEAR); BILIRUBIN,URINE NEGATIVE (NEGATIVE); COLOR,URINE YELLOW (YELLOW); GLUCOSE, URINE (UA) 70 mg/dL (NEGATIVE); KETONES,URINE NEGATIVE (NEGATIVE); LEUKOCYTE ESTERASE ,URINE 500 Leu/uL (NEGATIVE); NITRATE,URINE NEGATIVE (NEGATIVE); OCCULT BLOOD,URINE SMALL (NEGATIVE); PROTEIN,URINE 50 mg/dL (NEGATIVE); UROBILINOGEN,URINE 0.2 mg/dL (0.2-1.0)
[2024-05-26 22:13] LABS: ADD UA MICROSCOPIC YES
[2024-05-26 22:15] LABS: BACTERIA,URINE MOD /HPF (None Seen); MUCUS,URINE RARE LPF (None Seen); RBC,URINE 51-100 /HPF (0-1); SQUAMOUS EPITHELIAL CELL,UR FEW /HPF (0-2); UNCLASSIFIED CRYSTAL 3 /HPF (None Seen); WBC,URINE 51-100 /HPF (0-1); YEAST,URINE BUDDING FEW /HPF (None Seen)
[2024-05-26 22:19] LABS: AMPHET/METH SCREEN,URINE NEGATIVE (NEGATIVE); BARBITURATE SCREEN, URINE NEGATIVE (NEGATIVE); BENZODIAZEPINES SCREEN,URINE NEGATIVE (NEGATIVE); CANNABINOID SCREEN,URINE NEGATIVE (NEGATIVE); COCAINE SCREEN,URINE POSITIVE (NEGATIVE); OPIATE SCREEN,URINE NEGATIVE (NEGATIVE); PHENCYCLIDINE SCREEN,URINE NEGATIVE (NEGATIVE)
[2024-05-26] MEDS: PoTASSium BIcarbonate/CIT AC 25 MEQ TABLET.EFF PO ONE (22:37)
--- NOTE | 2024-05-26 22:43 | NUR ---
[facility] CRISIS LINE CALLED. PENDING SCREER TO ARRIVE
--- NOTE | 2024-05-26 23:24 | NUR ---
shlomo miranda screener here to evaluate patient
[2024-05-27 01:00] VITALS: BP 108/63; PULSE 78; RESP 18; O2SAT 94
[2024-05-27] MEDS ORDERED: DICY20TA2 PO (01:05)
[2024-05-27] MEDS ORDERED: METR-172 PO (01:05)
--- NOTE | 2024-05-27 06:45 | EKG ---
[facility] Test Date: 2024-05-26 Test Time: 21:53:20 Pat Name: DIAMOND HOFFMAN Department: ED Room: Gender: F Varnish Mixer: [id number] : 1960 Requested By: ASHIA VARGHESE Order Number: [id number] Reading MD: Ammy Ty Measurements Intervals [place] Rate: 80 P: 8 MD: 141 QRS: 41 QRSD: 80 T: 99 QT: 400 QTc: 462 Interpretive Statements Sinus rhythm Nonspecific T abnormalities, lateral leads Compared to ECG 03/22/2024 08:57:25 No significant changes Electronically Signed On 06-01-2024 11:08:02 CDT by Ammy Ty Please click the below link to view image of tracing.
== END 2024-05-27 01:35 | disposition home or self-care (01) ==
LOC: EDH 19:06
DX: K52.9 Noninfective gastroenteritis and colitis, unspecified (principal); E87.6 Hypokalemia; E87.1 Hypo-osmolality and hyponatremia; E11.65 Type 2 diabetes mellitus with hyperglycemia; F14.10 Cocaine abuse, uncomplicated; M79.605 Pain in left leg; R45.851 Suicidal ideations; F41.9 Anxiety disorder, unspecified; F31.9 Bipolar disorder, unspecified; F17.200 Nicotine dependence, unspecified, uncomplicated; I10 Essential (primary) hypertension; Z88.1 Allergy status to other antibiotic agents; Z79.899 Other long term (current) drug therapy
CPT/HCPCS: 99285; 74177; 96374; 96375; 82550; 80048; 80305; 85025; 87086 ×2; 87186; 36415; 93005; 81001; G0481; J2270; J7030; J2405; J1885; Q9967

== ENCOUNTER 2024-08-24 14:36 | Emergency (ER) | payer MEDICAID ==
[~2024-08-24] VITALS: Ht 162.6 cm; Wt 72.6 kg
[~2024-08-24 14:36] MED LIST changes: +DICY20TA2 PO; +METR-172 PO
--- NOTE | 2024-08-24 14:53 | ERN ---
ED Note History of Present Illness Stated Complaint: LEG PAIN Chief Complaint: Lower Extremity Pain/Injury Time Seen by MD: 14:39 Dictation: Patient is a 64-year-old female homeless with a past medical history of diabetes type 2 , bipolar disease, depression, anxiety who was brought by EMS to the ER due to left leg pain, patient denies trauma, fall. She reported that the pain started suddenly, she is able to walk but feels pain. Allergies: Coded Allergies: ciprofloxacin (Unverified Allergy, Unknown, 01/20/21) Home Meds Active Scripts Metronidazole (Metronidazole) 500 Mg Tablet, 1 TAB PO TID for 7 Days, #21 TAB 0 Refills Prov:ASHIA VARGHESE NP 05/27/24 Dicyclomine HCl (Bentyl) 20 Mg Tab, 20 MG PO QIDP PRN for ABDOMINAL CRAMPING, #30 TAB Prov:ASHIA VARGHESE NP 05/27/24 Cyclobenzaprine HCl (Cyclobenzaprine HCl) 10 Mg Tablet, 1 TAB PO TID for muscle spasms for 10 Days, #30 TAB 0 Refills Prov:ASHIA VARGHESE NP 05/17/24 Ibuprofen (Ibuprofen 800 mg Tab) 800 Mg Tab, 800 MG PO Q8H PRN for fever or pain, #30 TAB 0 Refills Prov:ASHIA VARGHESE NP 05/17/24 Sulfamethoxazole/Trimethoprim (Bactrim Ds Tablet) 800 Mg-160 Mg Tablet, 1 TAB PO BID for 7 Days, #14 TAB 0 Refills Prov:ERICA WEBB 04/17/24 Famotidine (Famotidine) 20 Mg Tablet, 20 MG PO ONCE for 10 Days, #10 TAB Prov:MARYANN FRANCES MD 03/29/24 Acetaminophen (Tylenol) 325 Mg Capsule, 325 MG PO Max 4 doses PRN for left lower extremity pain for 4 Days, #16 CAP Prov:MARYANN FRANCES MD 03/29/24 Nitrofurantoin Monohyd/M-Cryst (Macrobid 100 mg Capsule) 100 Mg Capsule, 100 MG PO BID for 10 Days, #20 CAP Prov:MARYANN FRANCES MD 03/29/24 Gabapentin (Gabapentin) 100 Mg Capsule, 100 MG PO BID for 15 Days, #30 CAP Prov:MARYANN FRANCES MD 03/29/24 Past Medical History Past Medical History: Anxiety, Bipolar, Depression, Diabetes-Type II, Other Additional Past Medical Hx: KIDNEY DISEASE Surgical History: None Surgical History Other: RENAL STENT Family History: Negative Social History: Smokers, ETOH, Other History: Not Applicable Review of System Dictation NEGATIVE EXCEPT PER HPI Constitutional: Negative for fever,chills, and weight loss Eyes: Negative for injury, pain,redness, and discharge ENT: Negative for injury,pain or swelling Cardiovascular: denies chest pain, palpitations, and edema Respiratory: Negative for shortness of breath, cough, and wheezing, Abdomen/GI: Negative for abdominal pain, nausea, vomiting, diarrhea, and constipation Back: Negative for injury and pain : Negative for injury, bleeding and discharge MS/Extremity: Left lower extremity pain Skin: Negative for rash, and discoloration Neuro: Negative for headache, weakness, numbness, tingling, and seizure Psych: Negative for suicide ideation, homicidal ideation, and hallucinations Initial Vital Sign VS Vital Signs Date Time Temp Pulse Resp B/P (MAP) Pulse Ox O2 Delivery O2 Flow Rate FiO2 08/24/24 14:38 97.5 68 18 161/75 97 Room Air 08/24/24 15:02 0 21 Physical Exam Dictation General: awake, alert, NAD Head/Face: Normocephalic, atraumatic Eyes: PERRL, EOMI, vision at baseline ENT: oral cavity clear, TMs clear, no signs of infection Neck: Trachea midline, supple, no nuchal rigidity Cardiovascular: RRR, normal S1/S2, No MRGs, no JVD Respiratory: CTAB, no respiratory distress, No rales or wheezes Abdomen: Soft , no tender Skin: Warm, dry, normal turgor, no rash MS/Extremity: Pulses equal, no cyanosis, neurovascular intact, FROM Neuro: COAx4, GCS 15, strength 5/5, CN 2-12 intact, normal cerebellar exam, normal gait, Psych: Normal behavior, mood, and affect normal Results (Laboratory/Radiology) Laboratory/Radiology Laboratory Tests Test 08/24/24 14:59 Whole Blood Glucose 187 MG/DL (70-110) H ED Course ED Course Orders Procedure Category Date Status Time Ibuprofen 600 Mg PHA 08/24/24 Complete Tablet (Motrin) 15:00 Acetaminophen 500mg PHA 08/24/24 Complete Tab (Tylenol 500mg T 15:00 Gabapentin 100 Mg Cap PHA 08/24/24 In Process (Neurontin 100 Mg 15:00 Current Medications Medications (Trade) Dose Ordered Sig/Michelle Route PRN Reason Start Time Stop Time Status Last Admin Dose Admin Acetaminophen (TYLenol 500MG TAB) 500 mg ONCE ONCE PO 08/24/24 15:00 08/24/24 15:01 DC 08/24/24 14:55 Gabapentin (NEURontin 100 mg CAP) 100 mg ONCE PO 08/24/24 15:00 09/23/24 14:59 08/24/24 15:20 Ibuprofen (moTRIN) 600 mg ONCE ONCE PO 08/24/24 15:00 08/24/24 15:01 DC 08/24/24 14:55 Vital Signs Date Time Temp Pulse Resp B/P (MAP) Pulse Ox O2 Delivery O2 Flow Rate FiO2 08/24/24 16:30 98.1 68 18 155/68 97 Room Air* 0 21 08/24/24 15:02 98.1 Room Air* 0 21 08/24/24 14:38 97.5 68 18 161/75 97 Room Air Medical Decision Making MDM 61-year-old female with a past medical history of bipolar disease, anxiety, depression, diabetes mellitus type 2. She was brought to the ER by EMS due to left lower extremity pain. Patient is a homeless. Leg pain Malingering Sciatic pain Plan: Tylenol 500 mg once oral Ibuprofen 600 mg once oral Gabapentin oral Re-evaluate the patient in 1 hour after medications given and discharge home. Patient was re-evaluated. Patient is reports improvement of pain. We will proceed with the discharge home. DX & DISP Disposition: Discharge Departure Impression: Primary Impression: Homelessness Additional Impressions: Leg pain, left, Malingering Condition: Stable Referrals: LUPE CUADRA DO (PCP) PARISH PATHAK MD Aug 24, 2024 14:53
[2024-08-24] MEDS: acetaMINOPHEN 500 MG TABLET PO ONE (14:55)
[2024-08-24] MEDS: ibuPROFEN 600 MG TABLET PO ONE (14:55)
[2024-08-24] MEDS: GABApentin 100 MG CAPSULE PO SCH (15:20)
[2024-08-24 17:38] VITALS: BP 153/65; PULSE 68; RESP 18; TEMP 98; O2SAT 97
== END 2024-08-24 17:39 | disposition home or self-care (01) ==
LOC: EDH 14:36
DX: M79.605 Pain in left leg (principal); E11.9 Type 2 diabetes mellitus without complications; F17.200 Nicotine dependence, unspecified, uncomplicated; F31.9 Bipolar disorder, unspecified; Z79.899 Other long term (current) drug therapy; Z76.5 Malingerer [conscious simulation]; Z59.00 Homelessness unspecified; Z88.1 Allergy status to other antibiotic agents
CPT/HCPCS: 82948; 99284

== ENCOUNTER 2025-05-03 15:36 | Emergency (ER) | payer MEDICAID ==
[~2025-05-03] VITALS: Ht 165.1 cm; Wt 72.6 kg
--- NOTE | 2025-05-03 15:56 | ERN ---
ED Note History of Present Illness Stated Complaint: LEG PAIN Chief Complaint: Lower Extremity Pain/Injury Time Seen by MD: 15:50 Dictation: PATIENT IS A 65-YEAR-OLD FEMALE COMING IN VIA EMS WITH COMPLAINTS OF WALKING ACROSS AN INTERSECTION TO GO TO A LOCAL RESTAURANT WHEN SHE HAD HER LEFT LEG GIVE OUT AND SHE WENT TO THE GROUND. SHE STATES SHE DID NOT HAVE ANY CHEST PAIN BACK PAIN HEADACHE. SHE STATES HER LEG JUST GOT WEAK AND IT WENT OUT. ON EXAM SHE IS ALERT AND ORIENTED X4 SPEECH IS CLEAR SHE HAS NO FOCAL TENDERNESS TO HER PELVIS OR HIP NO SHORTENING OR ROTATION OF LEFT LEG. SHE STATES SHE HAS DIABETES AND HYPERTENSION, IS HOMELESS AND STATES HER MEDICATIONS OR IN HER SHOPPING BASKET WHERE THEY PICKED HER UP FROM. Allergies: Coded Allergies: ciprofloxacin (Unverified Allergy, Unknown, 01/20/21) Home Meds Active Scripts Acetaminophen (Tylenol) 500 Mg Tab, 2 TAB PO Q6HPRN PRN for pain or fever, #60 TAB 0 Refills Prov:ASHIA VARGHESE SSIS ETL DEVELOPER 05/03/25 Past Medical History Past Medical History: Hypertension, Other Additional Past Medical Hx: BIPOLAR Surgical History: None Surgical History Other: RENAL STENT Family History: Negative Social History: Smokers, ETOH, Other History: Not Applicable RN Note Reviewed/Agreed w/PFSH: Yes Review of System Dictation CONSTITUTIONAL: NEGATIVE EXCEPT FOR HPI HEAD/FACE: NEGATIVE EXCEPT FOR HPI EENT: NEGATIVE EXCEPT FOR HPI RESPIRATORY: NEGATIVE EXCEPT FOR HPI GASTROINTESTINAL/ABDOMINAL: NEGATIVE EXCEPT FOR HPI GENITOURINARY: NEGATIVE EXCEPT FOR HPI MUSCULOSKELETAL: NEGATIVE EXCEPT FOR HPI CHRONIC LEFT SHOULDER PAIN WITH FULL RANGE OF MOTION INTEGUMENTARY: NEGATIVE EXCEPT FOR HPI NEUROLOGICAL/PSYCH: NEGATIVE EXCEPT FOR HPI WEAKNESS TO LEFT LEG HEMATOLOGIC/LYMPHATIC: NEGATIVE EXCEPT FOR HPI ALL SYSTEMS NEGATIVE, EXCEPT NOTED ABOVE. 13 POINT REVIEW OF SYSTEMS ASSESSED AND ALL NEGATIVE EXCEPT FOR ABOVE. Initial Vital Sign VS Vital Signs Date Time Temp Pulse Resp B/P (MAP) Pulse Ox O2 Delivery O2 Flow Rate FiO2 05/03/25 15:39 98.1 77 18 101/60 98 Room Air 0 05/03/25 15:45 21 Physical Exam Dictation VITAL SIGNS REVIEWED GENERAL APPEARANCE: ALERT, ORIENTED X 3, NO ACUTE DISTRESS, WELL DEVELOPED, NOURISHED. OBESE HEAD AND FACE: NON-TRAUMATIC. EYES: PERRL, PINK CONJUNCTIVAS, EYELID NO TRAUMA, ANTERIOR CHAMBER WITH ARCUS SENILIS. EARS: PINNAS INTACT AND NO SIGNS OF TRAUMA OR ERYTHEMA EAR CANALS CLEAR AND NO DISCHARGE TM NO ERYTHEMA NOSE: NO DISCHARGE, NO BLEEDING. OROPHARYNX: MOUTH NORMAL, TONGUE PINK, PHARYNX CLEAR,NO ERYTHEMA, TONSILS NO EXUDATES, NO ABSCESSES NOTED, MUCOUS MEMBRANE MOIST NECK: SUPPLE, NON-TENDER, NO THYROMEGALY, NO MASSES, NO JVD, NO BRUITS BREAST:DEFERRED CHEST:NO TENDERNESS, NO CREPITUS, NO PARADOXICAL MOVEMENT, NO RETRACTIONS LUNGS:CLEAR, WELL-VENTILATED, SYMMETRIC, NO RALES, NO WHEEZING, NO RHONCHI, NO STRIDOR, GOOD BREATH SOUNDS BILATERALLY HEART: REGULAR RATE, REGULAR RHYTHM, NO MURMUR, NO GALLOPS VASCULAR: NO PERIPHERAL EDEMA, ABDOMEN: SOFT, POSITIVE BOWEL SOUNDS, NONDISTENDED, NO GUARDING, NONTENDER, NO REBOUND, NO MASSES NO HEPATOMEGALY, NO SPLENOMEGALY, NO RIVERA'S SIGN, NO HERNIAS. RECTAL: DEFERRED GENITAL: DEFERRED NEUROLOGICAL: NORMAL SPEECH, MOTOR FUNCTION INTACT, SENSORY FUNCTION INTACT MUSCULOSKELETAL: NECK NONTENDER, FULL RANGE OF MOTION, BACK NONTENDER, FULL RANGE OF MOTION, EXTREMITIES: MILD LEFT DELTOID TENDERNESS, FULL RANGE OF MOTION NEUROVASCULAR CMS INTACT. SKIN: COLOR PINK, DRY, NO TURGOR, NO RASH, NO LACERATIONS, NO ABRASIONS, NO CONTUSIONS. LYMPHATIC: DEFERRED Results (Laboratory/Radiology) Laboratory/Radiology Laboratory Tests Test 05/03/25 16:20 White Blood Count 8.3 K/uL (4.8-10.8) Red Blood Count 4.71 MIL/uL (4.00-5.50) Hemoglobin 14.1 g/dL (12.0-16.0) Hematocrit 42.6 % (36-48) Mean Corpuscular Volume 90.4 fL (79-99) Mean Corpuscular Hemoglobin 29.9 pg (27.0-33.0) Mean Corpuscular Hemoglobin Concent 33.1 g/dL (32.0-36.0) Red Cell Distribution Width 13.7 % (11.0-15.5) Platelet Count 424 K/uL (130-400) H Mean Platelet Volume 9.0 fL (7.5-10.5) Immature Granulocyte % (Auto) 0.5 % (0-1) Neutrophils (%) (Auto) 55.5 % (40.0-77.0) Lymphocytes (%) (Auto) 33.7 % (21.0-51.0) Monocytes (%) (Auto) 4.6 % (3.0-13.0) Eosinophils (%) (Auto) 5.2 % (0.0-8.0) Basophils (%) (Auto) 0.5 % (0.0-5.0) Neutrophils # (Auto) 4.6 K/uL (1.8-7.7) Lymphocytes # (Auto) 2.8 K/uL (1.0-4.8) Monocytes # (Auto) 0.4 K/uL (0.1-1.0) Eosinophils # (Auto) 0.43 K/uL (0.00-0.70) Basophils # (Auto) 0.04 K/uL (0.00-0.20) Absolute Immature Granulocyte (auto 0.04 K/uL (0-1) Nucleated Red Blood Cells 0.0 % (0.0-0.19) Sodium Level 140 mmol/L (136-145) Potassium Level 3.7 mmol/L (3.5-5.1) Chloride Level 105 mmol/L (101-111) Carbon Dioxide Level 25 mmol/L (21-32) Blood Urea Nitrogen 14 mg/dL (7-18) Creatinine 0.8 mg/dL (0.5-1.0) Glomerular Filtration Rate Calc 82 mL/min (>90) Random Glucose 139 mg/dL (70-105) H Total Calcium 9.6 mg/dL (8.5-10.1) Troponin I High Sensitivity 6 ng/L (4-50) Labs Reviewed?: Yes EKG Comment: EKG SINUS RHYTHM/HEART RATE 70/AXIS NORMAL/T-WAVE FLATTENING V1 V2 ED Course ED Course Orders Procedure Category Date Status Time Cbc With Differential LAB 05/03/25 Complete 15:54 Troponin I High LAB 05/03/25 Complete Sensitivity 15:54 12 Lead Ekg Tracing- EKG 05/03/25 Logged Technical 15:54 0.9%Nacl 1000ml (Ns PHA 05/03/25 Complete 1000ml) 16:00 Basic Metabolic Panel LAB 05/03/25 Complete 15:54 Acetaminophen 500mg PHA 05/03/25 Complete Tab (Tylenol 500mg T 17:00 Hydrocodone/Apap PHA 05/03/25 Transmitted 5/325 (Mohler 5/325mg) 18:00 Ketorolac 60mg/2ml PHA 05/03/25 Transmitted (Toradol 60mg/2ml) 18:00 Current Medications Medications (Trade) Dose Ordered Sig/Michelle Route PRN Reason Start Time Stop Time Status Last Admin Dose Admin Acetaminophen (TYLenol 500MG TAB) 1,000 mg ONCE ONCE PO 05/03/25 17:00 05/03/25 17:07 DC 05/03/25 17:12 Sodium Chloride 1,000 ml @ 0 mls/hr ONCE ONCE IV 05/03/25 16:00 05/03/25 16:01 DC 05/03/25 16:07 Vital Signs Date Time Temp Pulse Resp B/P (MAP) Pulse Ox O2 Delivery O2 Flow Rate FiO2 05/03/25 17:44 98.8 68 15 127/70 99 Room Air* 0 21 05/03/25 17:02 98.8 65 15 126/72 99 Room Air* 0 21 05/03/25 15:45 98.8 69 15 124/70 99 Room Air* 0 21 05/03/25 15:39 98.1 77 18 101/60 98 Room Air 0 1740/PATIENT REMAINS NEUROLOGICALLY INTACT SHE WAS GIVEN TYLENOL FOR HER PAIN AND STATES HIS RELIEF. SHE IS AWARE THAT WORKUP IS NEGATIVE CARDIAC WORKUP NEGATIVE TOLD FOLLOW UP WITH HER PRIMARY CARE DOCTOR IN THE NEXT 1-2 DAYS AND CONTINUE ALL MEDICATIONS AND TREATMENTS SHE HAS FROM HER DOCTOR. PATIENT DOES STATE THAT SHE WAS TAKING GABAPENTIN UNTIL A WEEK AGO WHEN SHE RAN OUT FOR HER DIABETIC NEUROPATHY TO HER LOWER EXTREMITIES. SHE REQUESTED A REFILL OF HIS MEDICATION. HEART Score Response (Comments) Value EKG: Repolarization changes 1 Age: 45-65yrs (+1) 1 Risk Factors: 1-2 risk factors (+1) 1 Initial Troponin: Normal limit (0) 0 Total 3 Medical Decision Making MDM MDM: DIFFERENTIAL DIAGNOSIS: ACS/AMI/ELECTROLYTE IMBALANCE/DEHYDRATION/CHRONIC LEFT SHOULDER PAIN/ANEMIA RATIONALE: TESTS CONSIDERED AND ORDERED SECONDARY TO SHARED DECISION MAKING INCLUDE: PREVIOUS OUTSIDE RECORDS REVIEWED: OLD ER VISITS. RISK OF COMPLICATION AND/OR MORBIDITY OR MORTALITY OF PATIENT MANAGEMENT: NONE MEDICATIONS-PER MEDICATION RECONCILIATION NEED FOR HOSPITALIZATION: PATIENT DOES NOT MEET CRITERIA FOR HOSPITALIZATION. NONE NEED FOR EMERGENCY MAJOR/MINOR SURGERY: NO THERE ARE NO SOCIAL CONCERNS WITH THIS PATIENT. PRESCRIPTION DRUG MANAGEMENT TYLENOL PRESCRIPTIONS WILL INCLUDE SYMPTOMATIC CARE PATIENT'S PRIOR EXTERNAL MEDICAL RECORDS FROM OTHER ER VISITS WERE REVIEWED BY ME INDICATED. PRIOR TESTING AND RESULTS FROM PREVIOUS VISITS WERE REVIEWED. PRIOR TESTS WERE TAKEN INTO ACCOUNT WITH MEDICAL DECISION MAKING AND RESOURCE UTILIZATION, INDEPENDENT HISTORIAN/HISTORIANS WERE USED TO OBTAIN COMPLETE MEDICAL HISTORY. I INDEPENDENTLY INTERPRETED THE TEST THAT WERE PERFORMED, RESULTS WERE REVIEWED BY ME AND CONSIDERED FINDINGS ON RADIOLOGY IF ORDERED. MEDICAL MANAGEMENT AND EXAMINATION INTERPRETATION DISCUSSIONS WERE HAD BY ME WITH OTHER QUALIFIED HEALTHCARE PROFESSIONALS INDICATED FOR THE PATIENT'S CARE. DX & DISP Disposition: Discharge Departure Impression: Primary Impression: Chronic left shoulder pain Additional Impressions: Weakness, Diabetes mellitus with hyperglycemia, Diabetic neuropathy Condition: Stable Scripts Gabapentin (Gabapentin) 800 Mg Tablet 1 TAB PO TID for 30 Days, #90 TAB 0 Refills Prov: ASHIA VARGHESE SSIS ETL DEVELOPER 05/03/25 Acetaminophen (Tylenol) 500 Mg Tab 2 TAB PO Q6HPRN PRN for pain or fever, #60 TAB 0 Refills Prov: ASHIA VARGHESE SSIS ETL DEVELOPER 05/03/25 Additional Instructions: FOLLOW-UP WITH PRIMARY CARE PROVIDER IN 1 TO 2 DAYS. TAKE MEDICATIONS DIRECTED HERE IN THE EMERGENCY ROOM. OKAY TO CONTINUE HOME MEDICATIONS UNLESS OTHERWISE DISCUSSED DURING YOUR VISIT IN THE EMERGENCY ROOM TODAY. RETURN TO YOUR NEAREST EMERGENCY ROOM IF SYMPTOMS WORSEN OR IF THERE IS NO IMPROVEMENT. CALL 911 IF YOU NEED IMMEDIATE ASSISTANCE. TAKE TYLENOL OR MOTRIN [id number] NEEDED AND IF NO CONTRAINDICATIONS ARE PRESENT. INCREASE ORAL HYDRATION. A WOUND CULTURE OR URINE CULTURE WAS ORDERED HERE IN THE EMERGE [facility] ROOM DEPARTMENT PLEASE FOLLOW-UP WITH PRIMARY CARE PROVIDER AND ADVISE THEM TO GET REPEAT PORTS FROM OUR FACILITY. IF YOU HAD ANY DANUTA WRAP/SPLINTS THAT WERE APPLIED HERE, PLEASE DO NOT REMOVE THEM UNTIL YOU SEE YOUR PRIMARY CARE OR SPECIALTY. DIET AND ACTIVITY TOLERATED. CONTINUE ALL YOUR MEDICATIONS FROM YOUR PRIMARY CARE DOCTOR. TAKE TYLENOL NEEDED FOR YOUR PAIN Referrals: LUPE CUADRA DO (PCP) I have reviewed the case, and I agree with, Diagnosis and Plan ASHIA VARGHESE NP May 03, 2025 15:56
[2025-05-03] MEDS: 0.9%NACL 1000ML 1,000 ML IV ONE (16:07)
[2025-05-03 16:26] LABS: IMMATURE GRANULOCYTE ABSOLUTE 0.04 K/uL (0-1); NUCLEATED RED BLOOD CELLS 0.0 % (0.0-0.19); PLATELET COUNT (AUTO) 424 K/uL (130-400); RED BLOOD CELL COUNT(AUTO) 4.71 MIL/uL (4.00-5.50); RED CELL DISTRIBUTION WIDTH 13.7 % (11.0-15.5); WHITE BLOOD COUNT (AUTO) 8.3 K/uL (4.8-10.8)
[2025-05-03 16:33] LABS: CREATININE 0.8 mg/dL (0.5-1.0); GLOMERULAR FILTR. RATE CALC 82.0 mL/min (>90); GLUCOSE,RANDOM 139.0 mg/dL (70-105); SODIUM SERUM 140.0 mmol/L (136-145); UREA NITROGEN, BLOOD 14.0 mg/dL (7-18)
[2025-05-03] MEDS ORDERED: ACET-66 PO (17:41)
[2025-05-03 17:44] VITALS: BP 127/70; PULSE 68; RESP 15; TEMP 98.8; O2SAT 99
[2025-05-03] MEDS ORDERED: GABA-1555 PO (17:59)
[2025-05-03] MEDS: HYDROcodone/APAP 5/325 1 TAB TABLET PO ONE (18:08)
--- NOTE | 2025-05-03 23:35 | EKG ---
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
== END 2025-05-03 18:41 | disposition home or self-care (01) ==
LOC: EDH 15:36
DX: G89.29 Other chronic pain (principal); M25.512 Pain in left shoulder; R53.1 Weakness; E11.40 Type 2 diabetes mellitus with diabetic neuropathy, unspecified; E11.65 Type 2 diabetes mellitus with hyperglycemia; I10 Essential (primary) hypertension; F31.9 Bipolar disorder, unspecified; F17.200 Nicotine dependence, unspecified, uncomplicated; Z88.1 Allergy status to other antibiotic agents
CPT/HCPCS: 99284; 96360; 84484; 80048; 85025; 36415; 96372; 93005; J1885; J7030